=== PATIENT | male | born 1990 | race Hispanic/Latino ===

== ENCOUNTER 2018-09-02 18:05 | Emergency (ER) | payer OTHER ==
--- NOTE | 2018-09-02 21:38 | EDPHYS ---
Physician Documentation [facility] Name: Toy Gloria Age: 27 yrs Sex: Male : 1990 Arrival Date: 09/02/2018 Time: 18:08 Bed 15 Private MD: ED Physician Arthur Vicente HPI: 09/02 21:29 This 27 yrs old Male presents to ER via Ambulatory with complaints of Stepped jmm on Nail. 21:29 The patient presents with an injury, pain. Onset: The symptoms/episode began/occurred jmm acutely, today. This is a 27 year old male with a history of crohns disease, GERD that presents to the ED with complaints of right foot pain. Patient states he stepped on a nail which went through his shoe earlier today. Patient denies other injury. patient is no utd on tetanus immunizations. . Historical: - Allergies: 18:44 KETAMINE; tw2 18:44 special K; tw2 18:44 Phenergan; tw2 - Home Meds: 18:44 Concerta Oral [Active]; unknown acid reflux medicine [Active]; unknown depression tw2 medicine [Active]; - PMHx: 18:44 chron's disease; Depression; GERD; Kidney stones; ulcertive colitis; tw2 - Immunization history:: Adult Immunizations unknown, Last tetanus immunization: unknown. - Social history:: Smoking status: Patient uses tobacco products, chewing tobacco. - Ebola Screening: : Patient denies travel to an Ebola-affected area in the 21 days before illness onset. ROS: 21:29 Constitutional: Negative for fever, chills, and weight loss, Cardiovascular: Negative jmm for chest pain, palpitations, and edema, Respiratory: Negative for shortness of breath, cough, wheezing, and pleuritic chest pain. 21:29 MS/extremity: Positive for injury or acute deformity, pain. 21:29 All other systems are negative. Exam: 21:29 Constitutional: This is a well developed, well nourished patient who is awake, alert, jmm and in no acute distress. Head/Face: atraumatic. Eyes: EOMI, no conjunctival erythema appreciated ENT: Moist Mucus Membranes Neck: Trachea midline, Supple Chest/axilla: Normal chest wall appearance and motion. Cardiovascular: Regular rate and rhythm. No edema appreciated Respiratory: Normal respirations, no respiratory distress appreciated Back: Normal ROM 21:29 Neuro: Awake and alert, normal gait Psych: Behavior is normal, Mood is normal, Patient is cooperative and pleasant 21:29 Musculoskeletal/extremity: puncture wound noted to the ball of the right foot, no surrounding erythema appreciated, no purulent exudate is appreciated. . 21:29 Skin: puncture noted to the ball of the right foot. Vital Signs: 18:43 Pulse 59; Resp 17; Temp 97.8(TE); Pulse Ox 99% on R/A; Pain 3/10; tw2 18:44 BP 104 / 73; tw2 20:45 BP 104 / 83; Pulse 68; Resp 18; Pulse Ox 100% ; aj1 MDM: 21:29 Patient medically screened. [facility] 21:29 Refusal of service: The patient/guardian displays adequate decision making capability [facility] and despite a detailed discussion of alternatives, benefits, risks, and consequences refuses: all X-rays. ED course: Patient is advised of the risk of wound infection and is prescribed oral antibiotics. Patient understood and will follow up with pcp for reevaluation. . 21:36 Data reviewed: vital signs, nurses notes. Counseling: I had a detailed discussion with [facility] the patient and/or guardian regarding: the historical points, exam findings, and any diagnostic results supporting the discharge/admit diagnosis, the need for outpatient follow up, to return to the emergency department if symptoms worsen or persist or if there are any questions or concerns that arise at home. Administered Medications: 22:00 Drug: Tetanus-Diphtheria Toxoid Adult 0.5 ml {Black Top Spreader Machine Operator: [place]. Exp: aj07/23/2020. Lot #: [id number]. } Route: IM; Site: left deltoid; 22:13 Follow up: Response: No adverse reaction aj1 22:00 Drug: Cipro 500 mg Route: PO; aj1 22:14 Follow up: Response: No adverse reaction aj1 Disposition: 09/03 05:19 Co-signature as Attending Physician, Arthur Vicente MD. Disposition: 09/02/18 21:37 Discharged to Home. Impression: Puncture wound without foreign body of foot. - Condition is Stable. - Discharge Instructions: Puncture Wound. - Prescriptions for Cipro 500 mg Oral Tablet - take 1 tablet by ORAL route every 12 hours for 7 days; 20 tablet. - Medication Reconciliation Form, Thank You Letter, Antibiotic Education, Prescription Opioid Use form. - Follow up: Private Physician; When: 2 - 3 days; Reason: Recheck today's complaints, Continuance of care, Re-evaluation by your physician. Signatures: Dispatcher [employer] [facility] Yun Harris, RN RN aj1 Axel Cameron PA PA jmm Wise, Tara, RN RN tw2 Arthur Vicente MD MD gs Corrections: (The following items were deleted from the chart) 09/02 20:49 18:47 Foot Right W Compar+RAD.RAD.BRZ ordered. [facility] 22:21 21:37 09/02/2018 21:37 Discharged to Home. Impression: Puncture wound without foreign aj1 body of foot. Condition is Stable. Forms are Medication Reconciliation Form, Thank You Letter, Antibiotic Education, Prescription Opioid Use. Follow up: Private Physician; When: 2 - 3 days; Reason: Recheck today's complaints, Continuance of care, Re-evaluation by your physician. karla
--- NOTE | 2018-09-02 21:38 | ER ---
Nurse's Notes [facility] Name: Toy Gloria Age: 27 yrs Sex: Male : 1990 Arrival Date: 09/02/2018 Time: 18:08 Bed 15 Private MD: Diagnosis: Puncture wound without foreign body of foot Presentation: 09/02 18:42 Presenting complaint: Patient states: i was wearing tennis shoes and about 3 pm i tw2 stepped on a nail i felt it go all the way through my shoe and into my RIGHT foot. Transition of care: patient was not received from another setting of care. Onset of symptoms was September 02, 2018. Risk Assessment: Do you want to hurt yourself or someone else? Patient reports no desire to harm self or others. Initial Sepsis Screen: Does the patient meet any 2 criteria? No. Patient's initial sepsis screen is negative. Does the patient have a suspected source of infection? No. Patient's initial sepsis screen is negative. Care prior to arrival: None. 18:42 Method Of Arrival: Ambulatory tw2 18:42 Acuity: CHRISTINA 4 tw2 Triage Assessment: 18:45 General: Appears in no apparent distress. Behavior is calm, cooperative, appropriate tw2 for age. Pain: Complains of pain in right foot. Historical: - Allergies: 18:44 KETAMINE; tw2 18:44 special K; tw2 18:44 Phenergan; tw2 - Home Meds: 18:44 Concerta Oral [Active]; unknown acid reflux medicine [Active]; unknown depression tw2 medicine [Active]; - PMHx: 18:44 chron's disease; Depression; GERD; Kidney stones; ulcertive colitis; tw2 - Immunization history:: Adult Immunizations unknown, Last tetanus immunization: unknown. - Social history:: Smoking status: Patient uses tobacco products, chewing tobacco. - Ebola Screening: : Patient denies travel to an Ebola-affected area in the 21 days before illness onset. Screenin:45 Abuse screen: Denies threats or abuse. Denies injuries from another. Nutritional aj1 screening: No deficits noted. Tuberculosis screening: No symptoms or risk factors identified. Fall Risk None identified. Assessment: 20:45 General: Appears in no apparent distress. comfortable, Behavior is calm, cooperative, aj1 appropriate for age. Pain: Complains of pain in right foot. Neuro: Level of Consciousness is awake, alert, obeys commands. Cardiovascular: Patient's skin is warm and dry. Respiratory: Airway is patent Respiratory effort is even, unlabored, Respiratory pattern is regular, symmetrical. GI: No signs and/or symptoms were reported involving the gastrointestinal system. : No signs and/or symptoms were reported regarding the genitourinary system. EENT: No signs and/or symptoms were reported regarding the EENT system. Derm: Skin is pink, warm \T\ dry. normal, Wound noted ball of right foot Wound is puncture wound. Musculoskeletal: Circulation, motion, and sensation intact. 22:20 Reassessment: Patient appears in no apparent distress at this time. No changes from 1 previously documented assessment. Patient and/or family updated on plan of care and expected duration. Pain level reassessed. Patient is alert, oriented x 3, equal unlabored respirations, skin warm/dry/pink. Vital Signs: 18:43 Pulse 59; Resp 17; Temp 97.8(TE); Pulse Ox 99% on R/A; Pain 3/10; tw2 18:44 BP 104 / 73; tw2 20:45 BP 104 / 83; Pulse 68; Resp 18; Pulse Ox 100% ; aj1 ED Course: 18:08 Patient arrived in ED. tw3 18:43 Triage completed. tw2 18:43 Arm band placed on. tw2 20:45 Patient has correct armband on for positive identification. Bed in low position. Call aj1 light in reach. Side rails up X 1. 20:45 No provider procedures requiring assistance completed. [facility] 21:01 Axel Cameron PA is PHCP. [facility] 21:01 Arthur Vicente MD is Attending Physician. [facility] 22:00 Yun Harris RN is Primary Nurse. aj1 22:20 Patient did not have IV access during this emergency room visit. aj1 Administered Medications: 22:00 Drug: Tetanus-Diphtheria Toxoid Adult 0.5 ml {Teletypewriter Operator: [place]. Exp: aj1 07/23/2020. Lot #: [id number]. } Route: IM; Site: left deltoid; 22:13 Follow up: Response: No adverse reaction [facility] 22:00 Drug: Cipro 500 mg Route: PO; aj1 22:14 Follow up: Response: No adverse reaction [facility] Outcome: 21:37 Discharge ordered by MD. acosta 22:20 Discharged to home ambulatory. aj1 22:20 Condition: good 22:20 Discharge instructions given to patient, family, Instructed on discharge instructions, follow up and referral plans. medication usage, wound care, Demonstrated understanding of instructions, follow-up care, medications, Prescriptions given X 2. 22:21 Patient left the ED. aj1 Signatures: Yun Harris RN RN aj1 Axel Cameron PA PA jmm Wise, Tara, RN RN tw2 Maty Hilliard tw3
[2018-09-02] MEDS ORDERED: CIPROFLOXACIN HCL 500 MG TAB ONE (21:59)
[2018-09-02] MEDS ORDERED: TETANUS & DIPHTHERIA TOX,ADULT 0.5 ML VIAL ONE (22:05)
== END 2018-09-02 22:21 | disposition home or self-care (01) ==
LOC: ER 18:05
DX: S91.331A Puncture wound without foreign body, right foot, initial encounter (principal); W45.0XXA Nail entering through skin, initial encounter; Y93.9 Activity, unspecified; Y92.9 Unspecified place or not applicable; Z23 Encounter for immunization; Z72.0 Tobacco use; Z88.8 Allergy status to other drugs, medicaments and biological substances; Z91.018 Allergy to other foods; F32.9 Major depressive disorder, single episode, unspecified
CPT/HCPCS: 90714; 99283

== ENCOUNTER 2019-02-22 17:47 | Emergency (ER) | payer OTHER ==
--- OUTSIDE RECORDS SUMMARY | 2019-02-22 17:49 | XMS REPORT | Summary of Care ---
:1990 Author Organization [facility] Address [address] [place] [address] Care Team Providers Name Role Phone Les Dash Primary Care Provider Reason for Visit Reason Comments Referral/consult Difficulty with urination Encounter Details Date Type Department Care Team Description 01/26/2019 Office Visit [facility] Cancer ChomattiDeisy Dysuria ( Primary Dx); Center-Urologic N, CHILD PSYCHOMETRIST Urinary frequency; Oncology [address] [facility] Post-void dribbling; [address] [facility], [facility] Decreased urine stream; [address] History of nephrolith[place] [id number] [phone] Allergies Active Allergy Reactions Severity Noted Date Comments Dextromethorphan-Guaifenesin Unknown - See comments 01/12/2007 Promethazine Hcl Unknown - See comments 01/12/2007 Midazolam Hcl Unknown - See comments 01/12/2007 documented as of this encounter (statuses as of 01/27/2019) Medications Medication Sig Dispensed Refills Start Date End Date Status PAXIL 30 MG ORAL TAB None Entered 0 Active RISPERDAL 0.5 MG ORAL None Entered 0 Active TAB citalopram 40 mg tablet Take 40 mg by 0 Active mouth daily. Pantoprazole 40 mg Take 40 mg by 0 Active delayed-release mouth daily. suspension Methylphenidate HCl 10 Take by mouth. 0 Active mg Chew documented as of this encounter (statuses as of 01/27/2019) Active Problems Problem Noted Date Routine or child health check 01/12/2007 Overview: 15 YEAR documented as of this encounter (statuses as of 01/27/2019) Immunizations Name Administration Dates Next Due HEPATITIS A 07/15/2007 Meningococcal Vaccine 07/15/2007 documented as of this encounter Social History Tobacco Use Types Packs/Day Years Used Date Former Smoker Smokeless Tobacco: Current User Chew Alcohol Use Drinks/Week oz/Week Comments Never Alcohol Habits Answer Date Recorded How often do you have a drink containing alcohol? Never 01/26/2019 How many drinks containing alcohol do you have on a typical Not asked day when you are drinking? How often do you have six or more drinks on one occasion? Not asked Sex Assigned at Date Recorded Not on file Job Start Date Occupation Industry Not on file Not on file Not on file Travel History Travel Start Travel End No recent travel history available. documented as of this encounter Last Filed Vital Signs Vital Sign Reading Time Taken Comments Blood Pressure 106/69 01/26/2019 10:57 AM CDT Pulse 66 01/26/2019 10:57 AM CDT Temperature 36.8 C (98.2 F) 01/26/2019 10:57 AM CDT Respiratory Rate - - Oxygen Saturation 97% 01/26/2019 10:57 AM CDT Inhaled Oxygen Concentration - - Weight 69 kg (152 lb 3.2 oz) 01/26/2019 10:57 AM CDT Height 160 cm (5' 3") 01/26/2019 10:57 AM CDT Body Mass Index 26.96 01/26/2019 10:57 AM CDT documented in this encounter Patient Instructions Patient InstructionsDeisy Parry FNP - 01/26/2019 11:00 AM CDTAvoid bladder irritants - list provided Increase water intake Prevent constipation Decrease soda intake Limit fluids 2-3 hours prior to bedtime documented in this encounter Progress Notes Deisy Parry FNP - 01/26/2019 11:00 AM CDT Visit Type: Clinic Note / History and Physical Referred by: Self Chief Complaint: Difficulty urinating HPI Toy Gloria is a 28 year old male with a past medical history of below presents for evaluation of difficulty with urination accompanied by girlfriend and mother Swati. Difficulty with urination since the age of 9 which is worsening. No UTIs. No prior catheterization or CIC. No gross hematuria. No fever, chills. Intermittent bilateral flank pain with some nausea for the past few months. Pain described as 3/10 sharp pain intermittent. Pain improved with relaxing. Reports urinary frequency, decreased urine stream, stranguria (which causes rectal prolapse), dysuria attimes. Some incontinence, post-void dribbling. No urge incontinence or ANN-MARIE. Nocturia 12x per night. Incomplete bladder emptying. Urinary frequency every 5 minutes to every 1 hour. Drinks 12 pack of cokes per day. Drinking some water and cranberry juice during the day along with gatorade. No prior injury or trauma. No testicular swelling or pain. History of crohn's and ulcerative colitis diagnosed at age 7 with multiple hospital admissions (no recent exacerbations). History of blood in stool and rectal prolapse. History of many colonoscopies and prior surgery for rectal prolapse. Intermittent constipation, takes colace as needed with improvement. Alternates with loose stool. History of kidney stone at age 13-14 with sent placement. No other stone procedures and has not passed other stones. PCP Dr. mejia in [place]. Family history unknown, adopted. Histories PMH- Crohn's, ulcerative colitis, nephrolithiasis, rectal prolapse PSH- Colonoscopy, ureteral stent, rectal prolapse repair Family history - Unknown - adopted Social - Positive tobacco use, occasional marijuana use and negative for ETOH. Social History Socioeconomic History Marital status: Single Spouse name: Not on file Number of children: Not on file Years of education: Not on file Highest education level: Not on file Occupational History Not on file Social Needs Financial resource strain: Not on file Food insecurity: Worry: Not on file Inability: Not on file Transportation needs: Medical: Not on file Non-medical: Not on file Tobacco Use Smoking status: Former Smoker Smokeless tobacco: Current User Types: Chew Substance and Sexual Activity Alcohol use: Never Frequency: Never Drug use: Not on file Sexual activity: Not on file Lifestyle Physical activity: Days per week: Not on file Minutes per session: Not on file Stress: Not on file Relationships Social connections: Talks on phone: Not on file Gets together: Not on file Attends catholic service: Not on file Active member of club or organization: Not on file Attends meetings of clubs or organizations: Not on file Relationship status: Not on file Intimate partner violence: Fear of current or ex partner: Not on file Emotionally abused: Not on file Physically abused: Not on file Forced sexual activity: Not on file Other Topics Concern Not on file Social History Narrative Not on file Review of Systems Constitutional: Negative for chills, fever and unexpected weight change. HENT: Negative. Eyes: Positive for visual disturbance. Respiratory: Negative for cough, shortness of breath and wheezing. Cardiovascular: Negative for chest pain and palpitations. Gastrointestinal: Positive for abdominal pain, constipation, diarrhea and nausea. Negative for bloodin stool and vomiting. Genitourinary: Positive for bladder incontinence, dysuria, frequency, decreased urine volume and nocturia. Negative for hematuria. Musculoskeletal: Positive for back pain. Skin: Negative for rash. Neurological: Negative. Psychiatric/Behavioral: Depression Endocrine: Endocrine negative Physical Exam Constitutional: He appears well-developed and well-nourished. No distress. HENT: Head: Normocephalic and atraumatic. Eyes: Conjunctivae and EOM are normal. Neck: Neck supple. Cardiovascular: Normal rate. Pulmonary/Chest: Effort normal. Abdominal: Soft. He exhibits no distension. Back: No CVA tenderness Genitourinary: No suprapubic tenderness Musculoskeletal: He exhibits no edema. Neurological: He is alert and oriented to person, place, and time. Skin: Skin is warm and dry. Psychiatric: He has a normal mood and affect. His behavior is normal. Vitals reviewed. BP 106/69 (BP Location: Left arm, Patient Position: Sitting, BP CUFF SIZE: Adult Medium) | Pulse 66 | Temp 36.8 C (98.2 F) (Oral) | Ht 5' 3" (1.6 m) | Wt 152 lb 3.2 oz (69 kg) | SpO2 97% | BMI 26.96 kg/m Laboratory No results found for: PSA No results found for: CREAT No results found for: HGBA1C Radiology No new imaging Procedure Note BS PVR 31 cc Assessment/Plan Toy Gloria is a 28 year old male with: 1. LUTS 2. Urinary frequency / nocturia 3. Decreased urine stream/stranguria 4. History of nephrolithiasis 5. Ulcerative colitis 6. Crohn's 7. GERD 8. Depression Plan 1. UA/Urine C&S 2. Avoid bladder irritants -list provided 3. Increase water intake 4. Prevent constipation 5. Decrease soda intake 6. Limit fluids 2-3 hours prior to bedtime 7. Will notify of results and follow-up accordingly, advised may need CT scan for evaluation due to history of kidney stones. If no improvement in urinary symptoms, may also need to consider cystoscopyby faculty to r/o stricture 8. Requests labs from PCP 9. ER precautions discussed Deisy Parry APRN, FNP-C documented in this encounter Plan of Treatment Name Type Priority Associated Diagnoses Date/Time URINE CULTURE LAB Routine Dysuria 01/26/2019 11:44 AM CDT Urinary frequency Post-void dribbling Decreased urine stream History of nephrolithiasis Health Maintenance Due Date Last Done Comments VARICELLA VACCINES (1 of 2 - 13+ 2002 2-dose series) DTaP,Tdap,and Td Vaccines ( - 2008 Tdap) INFLUENZA VACCINE (#1) 2019 PNEUMOCOCCAL 0-64 YEARS COMBINED Aged Out No longer eligible based on SERIES patient's age to complete this topic documented as of this encounter Procedures Procedure Name Priority Date/Time Associated Diagnosis Comments POCT URINALYSIS Routine 01/26/2019 11:44 Dysuria Results for this AM CDT Urinary frequency procedure are in Post-void dribbling the results Decreased urine stream section. History of nephrolithiasis URINALYSIS Routine 01/26/2019 11:44 Dysuria Results for this AM CDT Urinary frequency procedure are in Post-void dribbling the results Decreased urine stream section. History of nephrolithiasis documented in this encounter Results URINALYSIS (01/26/2019 11:44 AM CDT) APPEARANCE Turbid (A) Clear [facility] COLOR Maricruz (A) Yellow [facility] PH 7.0 4.8 - 8.[address] [facility] SP GRAVITY 1.017 1.003 - 1.[address] [facility] GLU U QUAL Normal Normal [facility] BLOOD Negative Negative [facility] KETONES Negative Negative [facility] PROTEIN Negative Negative [facility] UROBILIN Normal Normal [facility] BILIRUBIN Negative Negative [facility] NITRITE Negative Negative [facility] LEUK MEG Negative Negative [facility] RBC/HPF 3 0 - 3 HPF [facility] WBC/HPF 23 (H) 0 - 5 HPF [facility] BACTERIA Negative Negative [facility] AMORPHOUS Moderate (A) Rare HPF [facility] SQ EPITH 1 <=[address] [facility] Specimen Urine - URINE, CLEAN CATCH Performing Organization Address City/State/Zipcode Phone Number [facility] CLIA: [id number], [address] [place], [place] [address] [facility] POCT URINALYSIS W SPECIFIC GRAVITY (01/26/2019 11:44 AM CDT) POCT U SP GRAV 1.010 1.005 - 1.025 mg/dl POCT PH U 7 5 - 8 mg/dl POCT U [place] EST NEGATIVE Negative - Negative POCT U NIT NEGATIVE Negative - Negative POCT U PROT TRACE Negative - Negative POCT U GLU NEGATIVE Negative - Negative POCT U KETONE NEGATIVE Negative - Negative POCT U UROBILI 0.2 0.2 - 1 mg/dl POCT U BILI NEGATIVE Negative - Negative POCT U BLD TRACE Negative - Negative POCT U COLOR YELLOW POCT U APPEAR CLOUDY Specimen Urine - URINE, CLEAN CATCH documented in this encounter Visit Diagnoses Diagnosis Dysuria - Primary Urinary frequency Post-void dribbling Decreased urine stream Slowing of urinary stream History of nephrolithiasis Personal history of urinary calculi documented in this encounter Insurance Payer Benefit Plan / Subscriber ID Effective Dates Phone Address Type Group [facility] [address] xxxxxxxxx 2018-Present Medicaid COMM PLAN - PLUS MANAGED MEDICAID [phone] [id number] (Work) documented as of this encounter
--- OUTSIDE RECORDS SUMMARY | 2019-02-22 17:49 | XMS REPORT ---
:1990 Author Organization eClinicalWorks Care Team Providers Name Role Phone Alon Patel Provider Role Unavailable Allergies, Adverse Reactions, Alerts Substance Reaction Event Type Phenergan Info Not Available Drug Allergy Ketamine HCl Info Not Available Drug Allergy Problems Problem Type Condition Code Onset Dates Condition Status Assessment Encounter for preventative adult Z00.01 Active health care exam with abnormal findings Problem ADHD (attention deficit F90.9 Active hyperactivity disorder) Problem Crohn's disease of colon with K50.119 Active complication Problem [place] ulcerative (chronic) K51.00 Active colitis Problem Mild mental retardation F70 Active Problem Depression F32.9 Active Problem Mitral valve prolapse I34.1 Active Problem alcohol syndrome Q86.0 Active Problem GERD (gastroesophageal reflux K21.9 Active disease) Assessment Influenza vaccination declined Z28.21 Active Assessment ADHD (attention deficit F90.9 Active hyperactivity disorder) Assessment Depression F32.9 Active Assessment Mild mental retardation F70 Active Assessment GERD (gastroesophageal reflux K21.9 Active disease) Assessment [place] ulcerative (chronic) K51.00 Active colitis Assessment Crohn's disease of colon with K50.119 Active complication Medications Medication Code Code Instructions Start End Status Dosage System Date Date Concerta [facility] 23867107286 54 MG Orally Active 1 tablet Once a day in the morning Citalopram [facility] 24526020853 20 MG Orally Active 1 tablet Hydrobromide Once a day Colace [facility] 89512052816 100 MG Orally Active 1 capsule Once a day as needed Protonix [facility] 94229844686 40 MG Orally Active 1 tablet Once a day Results No Known Results Summary Purpose eClinicalWorks Submission
--- OUTSIDE RECORDS SUMMARY | 2019-02-22 17:49 | XMS REPORT | Summary of Care ---
:1990 Author Organization [facility] Address [address] [place] [address] Care Team Providers Name Role Phone Hardy Les Primary Care Provider Reason for Referral MRI/CAT Scan (Routine) Status Reason Specialty Diagnoses / Referred By Referred To Procedures Contact Contact New Request Diagnostic Diagnoses Pyuria, sterile Lower urinary tract symptoms (LUTS) Decreased urine stream History of nephrolithiasis Microscopic hematuria Sohan, Radiology Procedures CT ABDOMEN PELVIS W WO CONTRAST LOVELY Ramirez [address] [facility] [address] [place] [address] Reason for Visit Reason Comments Results Encounter Details Date Type Department Care Team Description 02/03/2019 Telephone [facility] Cancer Deisy Parry FNP Results Center-Urologic Oncology [address] [place] [address] [address] [facility], [facility] [place] [address] [place] [address] [place] [phone] Allergies Active Allergy Reactions Severity Noted Date Comments Dextromethorphan-Guaifenesin Unknown - See comments 01/12/2007 Promethazine Hcl Unknown - See comments 01/12/2007 Midazolam Hcl Unknown - See comments 01/12/2007 documented as of this encounter (statuses as of 02/03/2019) Medications Medication Sig Dispensed Refills Start Date [...] as of this encounter (statuses as of 02/03/2019) Active Problems Problem Noted Date Routine or child health check 01/12/2007 Overview: 15 YEAR documented as of this encounter (statuses as of 02/03/2019) Immunizations Name Administration Dates Next Due HEPATITIS [...] of this encounter Last Filed Vital Signs Not on filedocumented in this encounter Plan of Treatment Name Type Priority Associated Diagnoses Order Schedule CT ABDOMEN PELVIS W WO IMAGING Routine Pyuria, sterile Expected: 02/03/2019, CONTRAST Lower urinary tract Expires: 02/04/2020 symptoms (LUTS) Decreased urine stream History of nephrolithiasis Microscopic hematuria CREATININE LAB Routine Pyuria, sterile Expected: 02/04/2019, Lower urinary tract Expires: 08/06/2019 symptoms (LUTS) Decreased urine stream History of nephrolithiasis Microscopic hematuria Health Maintenance Due Date Last Done Comments VARICELLA VACCINES (1 of 2 - 13+ 2002 2-dose series) DTaP,Tdap,and Td Vaccines (1 - 2008 Tdap) INFLUENZA VACCINE (#1) 2019 PNEUMOCOCCAL 0-64 YEARS COMBINED Aged Out No longer eligible based on SERIES patient's age to complete this topic documented as of this encounter Results Not on filedocumented in this encounter Visit Diagnoses Diagnosis Pyuria, sterile - Primary Other nonspecific finding on examination of urine Lower urinary tract symptoms (LUTS) Other symptoms involving urinary system Decreased urine stream Slowing of urinary stream History of nephrolithiasis Personal history of urinary calculi Microscopic hematuria documented in this encounter Insurance Payer Benefit Plan / Subscriber ID Effective Dates Phone Address Type Group [facility] xxxxxxxxx 2018-Present Medicaid COMM PLAN - PLUS MANAGED MEDICAID documented as of this encounter
--- OUTSIDE RECORDS SUMMARY | 2019-02-22 17:49 | XMS REPORT | Summary of Care ---
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 PCP Dr. mejia in [place]. Family history unknown, adopted. Histories PMH- Crohn's, [...] file Gets together: Not on file Attends restorationism service: Not on file Active member of [...] 11:44 AM CDT) APPEARANCE Turbid (A) Clear [facility] COLOR Maricruz (A) Yellow [facility] PH 7.0 4.8 - 8.0 [facility] SP GRAVITY 1.017 1.003 - 1.030 [facility] GLU U QUAL Normal Normal [facility] BLOOD Negative Negative [facility]ETONES Negative Negative [facility] PROTEIN Negative Negative [facility] UROBILIN Normal Normal [facility] BILIRUBIN Negative Negative [facility] NITRITE Negative Negative [facility] [place] MEG Negative Negative [facility] RBC/HPF 3 0 - 3 HPF [facility] WBC/HPF 23 (H) 0 - 5 HPF [facility] BACTERIA Negative Negative [facility] AMORPHOUS Moderate (A) Rare HPF [facility] SQ EPITH 1 <=2 HPF [facility] Specimen Urine - URINE, CLEAN CATCH Performing Organization Address City/State/Zipcode Phone Number [facility] CLIA: [id number], [address] [place], [place] [address] [facility] POCT URINALYSIS W SPECIFIC GRAVITY (01/26/2019 11:44 [...] ID Effective Dates Phone Address Type Group [facility] xxxxxxxxx 2018-Present Medicaid COMM PLAN - PLUS MANAGED MEDICAID [phone] [id number] (Work) documented as of this encounter
--- OUTSIDE RECORDS SUMMARY | 2019-02-22 17:49 | XMS REPORT ---
:1990 [facility] Address [address] [place] [address] Dr. Kinsey [address] [place] [address] Care Team Providers Name Role Phone Unavailable Unavailable Unavailable Problems This patient has no known problems. Allergies, Adverse Reactions, Alerts This patient has no known allergies or adverse reactions. Medications This patient has no known medications.
--- OUTSIDE RECORDS SUMMARY | 2019-02-22 17:50 | XMS REPORT | Summary of Care ---
:1990 Author Organization [facility] Address [address] [place] [address] Care Team Providers Name Role Phone Les Dash Primary Care Provider Reason for Referral MRI/CAT Scan (Routine) Status Reason Specialty Diagnoses / Referred By Referred To Procedures Contact Contact Closed Diagnostic Diagnoses Pyuria, sterile Lower urinary tract symptoms (LUTS) Decreased urine stream History of nephrolithiasis Microscopic hematuria Chonoski, Deisy Radiology Procedures CT ABDOMEN PELVIS W WO CONTRAST N, [facility] [address] [facility] [address] [place] [address] MRI/CAT Scan (Routine) Status Reason Specialty Diagnoses / Referred By Referred To Procedures Contact Contact Closed Diagnostic Diagnoses Pyuria, sterile Lower urinary tract symptoms (LUTS) Decreased urine stream History of nephrolithiasis Microscopic hematuria Chonoski, Deisy Radiology Procedures CT ABDOMEN PELVIS W WO CONTRAST N, [facility] [address] [facility] [address] [place] [address] Reason for Visit MRI/CAT Scan (Routine) Status Reason Specialty Diagnoses / Referred By Referred To Procedures Contact Contact Closed Diagnostic Diagnoses Pyuria, sterile Lower urinary tract symptoms (LUTS) Decreased urine stream History of nephrolithiasis Microscopic hematuria Chonoski, Deisy Radiology Procedures CT ABDOMEN PELVIS W WO CONTRAST N, [facility] [address] [facility] [address] [place] [address] Encounter Details Date Type Department Care Team Description 02/16/2019 Hospital Encounter [facility] Deisy Lopez, Arrived [facility] Tomography [address] [facility] [address] [place] [address] [facility] [address] [place] [address] [phone] Allergies Active Allergy Reactions Severity Noted Date Comments Dextromethorphan-Guaifenesin Unknown - See comments 01/12/2007 Promethazine Hcl Unknown - See comments 01/12/2007 Midazolam Hcl Unknown - See comments 01/12/2007 documented as of this encounter (statuses as of 02/17/2019) Medications Medication Sig Dispensed Refills Start Date [...] as of this encounter (statuses as of 02/17/2019) Active Problems Problem Noted Date Routine infant or child health check 01/12/2007 Overview: 15 YEAR documented as of this encounter (statuses as of 02/17/2019) Immunizations Name Administration Dates Next Due HEPATITIS [...] filedocumented in this encounter Plan of Treatment Health Maintenance Due Date Last Done Comments VARICELLA VACCINES (1 of 2 - 13+ 2002 2-dose series) DTaP,Tdap,and Td Vaccines (1 - 2008 Tdap) INFLUENZA VACCINE (#1) 2019 PNEUMOCOCCAL 0-64 YEARS COMBINED Aged Out No longer eligible based on SERIES patient's age to complete this topic documented as of this encounter Procedures Procedure Name Priority Date/Time Associated Comments Diagnosis CT ABDOMEN PELVIS W Routine 02/16/2019 4:56 PM Pyuria, sterile Results for this WO CONTRAST CDT Lower urinary tract procedure are in symptoms (LUTS) the results Decreased urine section. stream History of nephrolithiasis Microscopic hematuria POCT CREATININE Routine 02/16/2019 3:29 PM Results for this CDT procedure are in the results section. NOTICE OF PRIVACY Routine 02/16/2019 3:15 PM PRACTICES CDT CONSENT/REFUSAL FOR Routine 02/16/2019 3:15 PM DIAGNOSIS AND CDT TREATMENT ASSIGNMENT OF Routine 02/16/2019 3:14 PM BENEFITS CDT documented in this encounter Results CT ABDOMEN PELVIS W WO CONTRAST (02/16/2019 4:56 PM CDT) Specimen Narrative Performed At CT Abdomen and Pelvis without and with intravenous contrast. PACS/VR/DOSE CLINICAL HISTORY: LUTS. Pyuria, decreased urine stream, microscopic hematuria. History of nephrolithiasis. DOSE: Up-to-date CT equipment and radiation dose reduction techniques were employed. CTDIvol: 5.40+5.40 mGy. DLP: 270+264 mGy-cm. TECHNIQUE : Contiguous axial imaging from the level of the lung bases through the pubic symphysis were performed after the uncomplicated administration of Omnipaque contrast material. Coronal and sagittal reconstructions were obtained. Auto mA and/or iterative reconstruction were used to reduce radiation dose. FINDINGS: Lower lungs: 2 mm pleural-based nodule in the right posterior lower lung (image #3/series #3). No pleural effusion or pericardial effusion Liver, Gallbladder and Spleen: Liver is 15.7 cm in length and spleen is approximately 9.4 x 4.5 cm. No enhancing lesions visualized in the liver or in the spleen. No calcified gallstones. Biliary ducts and the pancreatic duct appear of normal size. A small 5 mm cystic lesion is seen in the lower right lobe (segment #5). Peritoneum:No free air or free fluid. No lymphadenopathy. Pancreas and Adrenals:Unremarkable pancreas and adrenal glands. Kidneys and Ureters: 2 mm small nonobstructing stone noted in the upper pole of the right kidney. No hydroureter or hydronephrosis. No enhancing kidney lesions. Vessels: Normal. Retroperitoneum: No abnormal fluid or lymphadenopathy. Bowel: No acute findings. Mild constipation noted. Normal small bowel gas pattern. Normal appendix is visualized. Bladder and Reproductive Organs: Normal urinary bladder. No enlargement of the prostate gland. Bones: Bone island noted in the neck of the right femur. No aggressive bone lesions. No compression fracture detected in the lower thoracic or lumbar vertebral bodies. Soft tissues: Unremarkable. CONCLUSION: 1. 2 mm nonobstructing stone in the upper pole of the right kidney. No kidney lesions. No urinary bladder abnormality. 2. 5 mm cyst in the right lobe of the liver. 3. 2 mm pleural-based nodule in the right lower lung, likely of no clinical significance. However, Noncontrast enhanced CT scan of the chest may be obtained to rule out any other nodules in the lungs. Procedure Note [facility], Radiant Results Inft User - 02/16/2019 5:[address] Abdomen and Pelvis without and with intravenous contrast. CLINICAL HISTORY: LUTS. Pyuria, decreased urine stream, microscopic hematuria. History of nephrolithiasis. DOSE: Up-to-date CT equipment and radiation dose reduction techniques were employed. CTDIvol: 5.40+5.40 mGy. DLP: 270+264 mGy-cm. TECHNIQUE : Contiguous axial imaging from the level of the lung bases through the pubic symphysis were performed after the uncomplicated administration of Omnipaque contrast material. Coronal and sagittal reconstructions were obtained. Auto mA and/or iterative reconstruction were used to reduce radiation dose. FINDINGS: Lower lungs: 2 mm pleural-based nodule in the right posterior lower lung (image #3/series #3). No pleural effusion or pericardial effusion Liver, Gallbladder and Spleen: Liver is 15.7 cm in length and spleen is approximately 9.4 x 4.5 cm. No enhancing lesions visualized in the liver or in the spleen. No calcified gallstones. Biliary ducts and the pancreatic duct appear of normal size. A small 5 mm cystic lesion is seen in the lower right lobe (segment #5). Peritoneum: No free air or free fluid. No lymphadenopathy. Pancreas and Adrenals: Unremarkable pancreas and adrenal glands. Kidneys and Ureters: 2 mm small nonobstructing stone noted in the upper pole of the right kidney. No hydroureter or hydronephrosis. No enhancing kidney lesions. Vessels: Normal. Retroperitoneum: No abnormal fluid or lymphadenopathy. Bowel: No acute findings. Mild constipation noted. Normal small bowel gas pattern. Normal appendix is visualized. Bladder and Reproductive Organs: Normal urinary bladder. No enlargement of the prostate gland. Bones: Bone island noted in the neck of the right femur. No aggressive bone lesions. No compression fracture detected in the lower thoracic or lumbar vertebral bodies. Soft tissues: Unremarkable. CONCLUSION: 1. 2 mm nonobstructing stone in the upper pole of the right kidney. No kidney lesions. No urinary bladder abnormality. 2. 5 mm cyst in the right lobe of the liver. 3. 2 mm pleural-based nodule in the right lower lung, likely of no clinical significance. However, Noncontrast enhanced CT scan of the chest may be obtained to rule out any other nodules in the lungs. Performing Organization Address [facility] Phone Number PACS/VR/DOSE POCT CREATININE (02/16/2019 3:29 PM CDT) POCT Creatinine 0.7 0.6 - 1.3 mg/dL [facility] Specimen Blood - VENOUS Performing Organization Address City/[facility]/Zipcode Phone Number [facility] CLIA: [id number], [address] [place] [address] documented in this encounter Visit Diagnoses Diagnosis Pyuria, sterile Other nonspecific finding on examination of urine Lower urinary tract symptoms (LUTS) Other symptoms involving urinary system Decreased urine stream Slowing of urinary stream History of nephrolithiasis Personal history of urinary calculi Microscopic hematuria documented in this encounter Administered Medications Medication Order MAR Action Action Date Dose Rate Site iohexol (OMNIPAQUE 350 BULK-100 Given 02/16/2019 4:42 PM CDT 130 mL mL) injection 130 mL 130 mL, Intravenous, ONCE, 1 dose, 02/16/19 at 1700, Routine documented in this encounter Insurance Payer Benefit Plan / Subscriber ID Effective Dates Phone Address Type Group [facility] ST[facility] xxxxxxxxx 2018-Present Medicaid COMM PLAN - PLUS MANAGED MEDICAID [phone] [id number] (Work) documented as of this encounter
--- NOTE | 2019-02-22 19:43 | ER ---
Nurse's Notes [facility] Name: Toy Gloria Age: 28 yrs Sex: Male : 1990 Arrival Date: 02/22/2019 Time: 17:49 Bed 11 [facility] MD: Diagnosis: Urticaria, unspecified Presentation: 02/22 17:58 Presenting complaint: Patient states: rash that started this morning. Benadryl taken sv today. Transition of care: patient was not received from another setting of care. Onset of symptoms was February 22, 2019. Risk Assessment: Do you want to hurt yourself or someone else? Patient reports no desire to harm self or others. Care prior to arrival: None. 17:58 Method Of Arrival: Ambulatory sv 17:58 Acuity: CHRISTINA 4 sv 19:14 Initial Sepsis Screen: Does the patient meet any 2 criteria? No. Patient's initial jd3 sepsis screen is negative. Does the patient have a suspected source of infection? No. Patient's initial sepsis screen is negative. Triage Assessment: 17:58 General: Appears in no apparent distress. comfortable, Behavior is calm, cooperative, sv appropriate for age. Pain: Denies pain. Neuro: Level of Consciousness is awake, alert, obeys commands, Gait is steady. Respiratory: Respiratory effort is even, unlabored, Respiratory pattern is regular, symmetrical. Derm: Rash noted that is red, urticaria, on back, chest, right arm and left arm. Historical: - Allergies: 17:59 KETAMINE; sv 17:59 Phenergan; sv 17:59 special K; sv 17:59 Versed; sv - PMHx: 17:59 chron's disease; Depression; GERD; Kidney stones; ulcertive colitis; sv - Immunization history:: Adult Immunizations up to date. - Social history:: Smoking status: Patient uses tobacco products, denies chronic smoking, but will smoke occasionally. - Ebola Screening: : Patient negative for fever greater than or equal to 101.5 degrees Fahrenheit, and additional compatible Ebola Virus Disease symptoms. Screenin:14 Abuse screen: Denies threats or abuse. Nutritional screening: No deficits noted. jd3 Tuberculosis screening: No symptoms or risk factors identified. Fall Risk Ambulatory Aid- None/Bed Rest/Nurse Assist (0 pts). Gait- Normal/Bed Rest/Wheelchair (0 pts) Mental Status- Oriented to own ability (0 pts). Total Randolph Fall Scale indicates No Risk (0-24 pts). Assessment: 19:12 General: Appears in no apparent distress. uncomfortable, Behavior is calm, cooperative, jd3 appropriate for age. Pain: Complains of pain in chest and back Quality of pain is described as itching. Neuro: Level of Consciousness is awake, alert, obeys commands, Oriented to person, place, time, situation. Cardiovascular: Capillary refill < 3 seconds Patient's skin is warm and dry. Respiratory: Airway is patent Respiratory effort is even, unlabored, Respiratory pattern is regular, symmetrical, Breath sounds are clear bilaterally. Denies cough, shortness of breath at rest. GI: No signs and/or symptoms were reported involving the gastrointestinal system. : No signs and/or symptoms were reported regarding the genitourinary system. EENT: No signs and/or symptoms were reported regarding the EENT system. Derm: Skin is intact, Skin is dry, Skin is normal, Skin temperature is warm Rash noted that is itchy, red, on back and chest. Musculoskeletal: Circulation, motion, and sensation intact. Range of motion: intact in all extremities. 20:00 Reassessment: Patient appears in no apparent distress at this time. Patient and/or jd3 family updated on plan of care and expected duration. Pain level reassessed. Patient is alert, oriented x 3, equal unlabored respirations, skin warm/dry/pink. reported understanding of discharge instructions. Patient denies pain at this time. Vital Signs: 18:04 BP 118 / 81; Pulse 85; Resp 18; Temp 98.9(TE); Pulse Ox 98% ; Weight 6.35 kg; Height 5 sv ft. 3 in. (160.02 cm); 18:04 Body Mass Index 2.48 (6.35 kg, 160.02 cm) sv ED Course: 17:49 Patient arrived in ED. as 17:59 Triage completed. sv 18:00 Arm band placed on. sv 19:12 Chaz Wheeler, RN is Primary Nurse. jd3 19:14 Patient has correct armband on for positive identification. Bed in low position. Call jd3 light in reach. Side rails up X 1. 19:17 Jaden Segura MD is Attending Physician. tw4 19:59 No provider procedures requiring assistance completed. Patient did not have IV access jd3 during this emergency room visit. Administered Medications: 19:40 CANCELLED (Physician Discretion): Motrin 800 mg PO once tw4 19:53 Drug: Pepcid 20 mg Route: PO; jd3 20:03 Follow up: Response: Medication administered at discharge. jd3 19:53 Drug: predniSONE 60 mg Route: PO; jd3 20:03 Follow up: Response: Medication administered at discharge. jd3 19:54 Drug: Benadryl 25 mg Route: PO; jd3 20:03 Follow up: Response: Medication administered at discharge. jd3 Outcome: 19:42 Discharge ordered by . tw4 19:59 Discharged to home ambulatory, with family. jd3 19:59 Condition: stable 19:59 Discharge instructions given to patient, Instructed on discharge instructions, follow up and referral plans. medication usage, Demonstrated understanding of instructions, follow-up care, medications, Prescriptions given X 1. 20:00 Patient left the ED. jd3 Signatures: Renuka Del Castillo RN RN sv Martinez, Amelia as Davies, Jonathon, RN RN jd3 Wadley, Terrence, MD MD tw4 Corrections: (The following items were deleted from the chart) 19:14 19:14 Social history: Smoking status: unknown jgeraldine jd3
--- NOTE | 2019-02-22 19:43 | EDPHYS ---
Physician Documentation [facility] Name: Toy Gloria Age: 28 yrs Sex: Male : 1990 Arrival Date: 02/22/2019 Time: 17:49 Bed 11 Private MD: ED Physician Jaden Segura HPI: 02/22 19:55 This 28 yrs old Male presents to ER via Ambulatory with complaints of Rash. tw4 19:55 The patient's rash thought to be caused by an unknown cause. The rash is located on the tw4 anterior aspect of right upper chest, anterior aspect of left upper chest, mid-sternal area, right breast, left breast and abdomen. The rash can be described as papular. Onset: The symptoms/episode began/occurred this morning. Associated signs and symptoms: Pertinent positives: itching, Pertinent negatives: burning sensation, difficulty breathing, fever, nausea, swelling of lips, swelling of throat, swelling of tongue, vomiting. Severity of symptoms: At their worst the symptoms were moderate in the emergency department the symptoms are unchanged. The patient has not experienced similar symptoms in the past. Historical: - Allergies: 17:59 KETAMINE; sv 17:59 Phenergan; sv 17:59 special K; sv 17:59 Versed; sv - PMHx: 17:59 chron's disease; Depression; GERD; Kidney stones; ulcertive colitis; sv - Immunization history:: Adult Immunizations up to date. - Social history:: Smoking status: Patient uses tobacco products, denies chronic smoking, but will smoke occasionally. - Ebola Screening: : Patient negative for fever greater than or equal to 101.5 degrees Fahrenheit, and additional compatible Ebola Virus Disease symptoms. ROS: 19:55 Constitutional: Negative for fever, chills, and weight loss, Eyes: Negative for injury, tw4 pain, redness, and discharge, Cardiovascular: Negative for chest pain, palpitations, and edema, Respiratory: Negative for shortness of breath, cough, wheezing, and pleuritic chest pain, Abdomen/GI: Negative for abdominal pain, nausea, vomiting, diarrhea, and constipation, Back: Negative for injury and pain, MS/Extremity: Negative for injury and deformity. 19:55 Skin: Positive for rash. Exam: 19:55 Constitutional: This is a well developed, well nourished patient who is awake, alert, tw4 and in no acute distress. Head/Face: Normocephalic, atraumatic. ENT: Nares patent. No nasal discharge, no septal abnormalities noted. Tympanic membranes are normal and external auditory canals are clear. Oropharynx with no redness, swelling, or masses, exudates, or evidence of obstruction, uvula midline. Mucous membranes moist. Chest/axilla: Normal chest wall appearance and motion. Nontender with no deformity. No lesions are appreciated. Cardiovascular: Regular rate and rhythm with a normal S1 and S2. No gallops, murmurs, or rubs. Normal PMI, no JVD. No pulse deficits. Respiratory: Lungs have equal breath sounds bilaterally, clear to auscultation and percussion. No rales, rhonchi or wheezes noted. No increased work of breathing, no retractions or nasal flaring. 19:55 Skin: Appearance: normal except for affected area, rash a moderate rash is noted, urticaria. Vital Signs: 18:04 BP 118 / 81; Pulse 85; Resp 18; Temp 98.9(TE); Pulse Ox 98% ; Weight 6.35 kg; Height 5 sv ft. 3 in. (160.02 cm); 18:04 Body Mass Index 2.48 (6.35 kg, 160.02 cm) sv MDM: 19:17 Patient medically screened. tw4 19:55 Differential diagnosis: allergic reaction, parasite infection. Data reviewed: vital tw4 signs, nurses notes. Test interpretation: by ED physician or midlevel provider: plain radiologic studies. Counseling: I had a detailed discussion with the patient and/or guardian regarding: the historical points, exam findings, and any diagnostic results supporting the discharge/admit diagnosis. Medication response: Benadryl pepcid. Response to treatment: the patient's symptoms have mildly improved after treatment, and as a result, I will discharge patient. Special discussion: Based on the patient's history, exam and DX evaluation, there is no indication for emergent intervention or inpatient [place]. It is understood by the patient/guardian that if the SXs persist or worsen they need to return immediately for re-evaluation. Administered Medications: 19:40 CANCELLED (Physician Discretion): Motrin 800 mg PO once tw4 19:53 Drug: Pepcid 20 mg Route: PO; jd3 20:03 Follow up: Response: Medication administered at discharge. jd3 19:53 Drug: predniSONE 60 mg Route: PO; jd3 20:03 Follow up: Response: Medication administered at discharge. jd3 19:54 Drug: Benadryl 25 mg Route: PO; jd3 20:03 Follow up: Response: Medication administered at discharge. jd3 Disposition: 02/22/19 19:42 Discharged to Home. Impression: Urticaria, unspecified. - Condition is Stable. - Discharge Instructions: Allergies, Adult, Hives. - Prescriptions for Medrol (Gio) 4 mg Oral Tablets, Dose Pack - take 1 tablet by ORAL route as directed - follow package instructions; 1 packet. - Medication Reconciliation Form, Thank You Letter, Antibiotic Education, Prescription Opioid Use form. - Follow up: Private Physician; When: Upon discharge from the Emergency Department; Reason: If symptoms return, Recheck today's complaints, Continuance of care. - Problem is new. - Symptoms are unchanged. Signatures: Renuka Del Castillo RN RN sv Davies, Jonathon, RN RN [facility] Jaden Segura MD MD tw4 Corrections: (The following items were deleted from the chart) 19:14 19:14 Social history: Smoking status: unknown jd3 jd3 19:40 19:33 Motrin 800 mg PO once ordered. tw4 tw4 20:00 19:42 02/22/2019 19:42 Discharged to Home. Impression: Urticaria, unspecified. jd3 Condition is Stable. Forms are Medication Reconciliation Form, Thank You Letter, Antibiotic Education, Prescription Opioid Use. Follow up: Private Physician; When: Upon discharge from the Emergency Department; Reason: If symptoms return, Recheck today's complaints, Continuance of care. Problem is new. Symptoms are unchanged. tw4
[2019-02-22] MEDS ORDERED: predniSONE 20 MG TAB ONE (19:47)
[2019-02-22] MEDS ORDERED: DIPHENHYDRAMINE 25 MG TAB/CAP ONE (19:47)
[2019-02-22] MEDS ORDERED: FAMOTIDINE 20 MG TAB ONE (19:48)
== END 2019-02-22 20:00 | disposition home or self-care (01) ==
LOC: ER 17:47
DX: L50.9 Urticaria, unspecified (principal); Z72.0 Tobacco use; Z88.8 Allergy status to other drugs, medicaments and biological substances; Z91.018 Allergy to other foods
CPT/HCPCS: 99283; J7512

== ENCOUNTER 2019-04-29 21:46 | Emergency (ER) | payer OTHER ==
--- OUTSIDE RECORDS SUMMARY | 2019-04-29 21:48 | XMS REPORT ---
:1990 [facility] Address [address] [place] [address] Dr. Kinsey [address] [place] [address] Care Team Providers Name Role Phone Unavailable Unavailable Unavailable Problems This patient has no known problems. Allergies, Adverse Reactions, Alerts This patient has no known allergies or adverse reactions. Medications This patient has no known medications.
--- OUTSIDE RECORDS SUMMARY | 2019-04-29 21:48 | XMS REPORT ---
[...] of colon with K50.119 Active complication Problem Ensign ulcerative (chronic) K51.00 Active colitis Problem Mild [...] GERD (gastroesophageal reflux K21.9 Active disease) Assessment Ensign ulcerative (chronic) K51.00 Active colitis Assessment Crohn's disease of colon with K50.119 Active complication Medications Medication Code Code Instructions Start End Status Dosage System Date Date Concerta [facility] 72168681385 54 MG Orally Active 1 tablet Once a day in the morning Citalopram [facility] 11248412262 20 MG Orally Active 1 tablet Hydrobromide Once a day Colace [facility] 69994197125 100 MG Orally Active 1 capsule Once a day as needed Protonix [facility] 24041232582 40 MG Orally Active 1 tablet Once a day Results No Known Results Summary Purpose eClinicalWorks Submission
--- OUTSIDE RECORDS SUMMARY | 2019-04-29 21:49 | XMS REPORT | Summary of Care ---
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 Urinary frequency; Oncology [address] [facility] Post-void dribbling; [address] [facility], [facility] Decreased urine stream; [address] [place] [address] [phone] Allergies Active Allergy Reactions Severity Noted Date Comments Dextromethorphan-Guaifenesin Unknown - See comments 01/12/2007 Promethazine Hcl Unknown - See comments 01/12/2007 Midazolam Hcl Unknown - See comments 01/12/2007 documented as of this encounter (statuses as of 02/23/2019) Medications Medication Sig Dispensed Refills Start Date [...] as of this encounter (statuses as of 02/23/2019) Active Problems Problem Noted Date Routine infant or child health check 01/12/2007 Overview: 15 YEAR documented as of this encounter (statuses as of 02/23/2019) Immunizations Name Administration Dates Next Due HEPATITIS [...] of kidney stone at age 13-14 with stent placement. No other stone procedures and has not passed other stones. PCP Dr. mejia in [place]. Family history unknown, adopted. Histories PMH- Crohn's, [...] file Gets together: Not on file Attends shinto service: Not on file Active member of [...] documented in this encounter Plan of Treatment Health Maintenance Due Date Last Done Comments VARICELLA VACCINES (1 of - + 2002 2-dose series) DTaP,Tdap,and Td Vaccines ( [...] Decreased urine stream section. History of nephrolithiasis URINE CULTURE Routine 01/26/2019 11:44 Dysuria Results for this AM CDT Urinary frequency procedure are in Post-void dribbling the results Decreased urine stream section. History of nephrolithiasis URINALYSIS Routine 01/26/2019 11:44 Dysuria Results for this AM CDT Urinary frequency procedure are in Post-void dribbling the results Decreased urine stream section. History of nephrolithiasis documented in this encounter Results URINE CULTURE (01/26/2019 11:44 AM CDT) URINE CULTURE <10,000 CFU/mL [facility] Gram-Positive SERVICES Cocci Specimen Urine - URINE, CLEAN CATCH Performing Organization Address City/State/Zipcode Phone Number [facility] CLIA: [id number], [address] [place] [address] [phone] [facility] URINALYSIS (01/26/2019 11:44 AM CDT) APPEARANCE Turbid (A) Clear [facility] COLOR Maricruz (A) Yellow [facility] PH 7.0 4.8 - 8.0 [facility] SP GRAVITY 1.017 1.003 - 1.030 [facility] GLU U QUAL Normal Normal [facility] BLOOD Negative Negative [facility] KETONES Negative Negative [facility] PROTEIN Negative Negative [facility] UROBILIN Normal Normal [facility] BILIRUBIN Negative Negative [facility] NITRITE Negative Negative [facility] LEUK MEG Negative Negative [facility] RBC/HPF 3 0 - 3 HPF [facility] WBC/HPF 23 (H) 0 - 5 HPF [facility] BACTERIA Negative Negative [facility] AMORPHOUS Moderate (A) Rare HPF [facility] SQ EPITH 1 <=2 HPF [facility] Specimen Urine - URINE, CLEAN CATCH Performing Organization Address City/State/[facility] Phone Number [facility] CLIA: [id number], [address] [place] [address] [facility] POCT URINALYSIS W SPECIFIC GRAVITY (01/26/2019 11:44 [...] ID Effective Dates Phone Address Type Group [facility] xxxxxxxxx 2018-Present Medicaid COMM PLAN - PLUS MANAGED MEDICAID [phone] [id number] (Work) documented as of this encounter
[2019-04-29] MEDS ORDERED: NA CHLORIDE 0.9% 1,000 ML ONE (23:31)
[2019-04-29] MEDS ORDERED: ONDANSETRON 4 MG/2 ML VIAL ONE (23:31)
[2019-04-29 23:46] LABS: Absolute Lymphocytes (CBC) 2.1 K/uL (0.7-4.9); Basophils % 0.4 % (0-1.3); Hematocrit 44.4 % (39.6-49.0); Lymphocytes % 19.2 % (15.3-44.8); MPV 8.4 fL (7.6-11.3); RBC Red Blood Cell Count 5.16 M/uL (4.33-5.43)
[2019-04-30 00:05] LABS: ALT/SGPT 39 U/L (12-78); AST/SGOT 23 U/L (15-37); Albumin 4.3 g/dL (3.4-5.0); Alkaline Phosphatase 78 U/L (45-117); BUN Blood Urea Nitrogen 14 mg/dL (7-18); Bicarbonate 28 mmol/L (21-32); Bilirubin Direct 0.2 mg/dL (0-0.2); Bilirubin Total 0.5 mg/dL (0.2-1.0); Glucose Level 82 mg/dL (74-106); Lipase 242 U/L (73-393); Potassium 3.7 mmol/L (3.5-5.1); Sodium Level 139 mmol/L (136-145)
[2019-04-30] MEDS ORDERED: METRONIDAZOLE 500mg IVPB 500 MG/100 ML BAG IV ONE (00:07)
[2019-04-30] MEDS ORDERED: Ciprofloxacin 200mg IV 200 MG/100 ML IV.SOLN. IV ONE (00:07)
--- NOTE | 2019-04-30 01:28 | ER ---
Nurse's Notes [facility] Name: Toy Gloria Age: 28 yrs Sex: Male : 1990 Arrival Date: 04/29/2019 Time: 21:50 Bed 26 Private MD: Diagnosis: Abdominal tenderness;Gastrointestinal hemorrhage, unspecified-stable Presentation: 04/29 21:59 Presenting complaint: Patient states: Patient states he became "queasy" , had formed BM ae4 with blood in the toilet. Pt reports hx of Crohn's, blood transfusion, rectal prolapse and kidney stones. Transition of care: patient was not received from another setting of care. Onset of symptoms was April 29, 2019 at 22:02. Risk Assessment: Do you want to hurt yourself or someone else? Patient reports no desire to harm self or others. 21:59 Method Of Arrival: Ambulatory ae4 21:59 Acuity: CHRISTINA 3 ae4 23:42 Initial Sepsis Screen: Does the patient meet any 2 criteria? No. Patient's initial mg2 sepsis screen is negative. Does the patient have a suspected source of infection? No. Patient's initial sepsis screen is negative. 23:43 Care prior to arrival: None. mg2 Triage Assessment: 22:03 General: Appears in no apparent distress. comfortable, Behavior is calm, cooperative. ae4 Pain: Denies pain. Neuro: Level of Consciousness is awake, alert, obeys commands, Oriented to person, place, situation. Respiratory: Airway is patent Respiratory effort is even, unlabored, Respiratory pattern is regular, symmetrical. GI: Reports bloody stool, nausea. : Reports burning with urination. Historical: - Allergies: 22:03 KETAMINE; ae4 22:03 Phenergan; ae4 22:03 special K; ae4 22:03 Versed; ae4 - Home Meds: 22:03 unknown acid reflux medicine [Active]; unknown depression medicine [Active]; ae4 23:43 Concerta Oral [Active]; mg2 - PMHx: 22:03 chron's disease; Depression; GERD; Kidney stones; ulcertive colitis; ae4 - Immunization history:: Adult Immunizations up to date. - Social history:: Smoking status: Patient uses street drugs, marijuana. - Ebola Screening: : Patient denies travel to an Ebola-affected area in the 21 days before illness onset No symptoms or risks identified at this time. Screenin:39 Abuse screen: Denies threats or abuse. Denies injuries from another. Nutritional mg2 screening: No deficits noted. Tuberculosis screening: No symptoms or risk factors identified. Fall Risk IV access (20 points). Assessment: 23:40 General: Appears in no apparent distress. comfortable, Behavior is calm, cooperative. mg2 Pain: Denies pain. Neuro: Level of Consciousness is awake, alert, obeys commands, Oriented to person, place, time, situation. Cardiovascular: Capillary refill < 3 seconds Patient's skin is warm and dry. Respiratory: Airway is patent Respiratory effort is even, unlabored, Respiratory pattern is regular, symmetrical. GI: Reports rectal bleeding, nausea, vomiting. : No signs and/or symptoms were reported regarding the genitourinary system. EENT: No signs and/or symptoms were reported regarding the EENT system. Derm: Skin is intact, is healthy with good turgor, Skin is pink, warm \\T\\ dry. normal. Musculoskeletal: Circulation, motion, and sensation intact. Capillary refill < 3 seconds. 04/30 00:21 Reassessment: patient sent to ct scan via wheelchair. mg2 00:50 Reassessment: Patient appears in no apparent distress at this time. No changes from aj1 previously documented assessment. Patient and/or family updated on plan of care and expected duration. Pain level reassessed. Patient is alert, oriented x 3, equal unlabored respirations, skin warm/dry/pink. 01:51 Reassessment: Patient appears in no apparent distress at this time. No changes from aj1 previously documented assessment. Patient and/or family updated on plan of care and expected duration. Pain level reassessed. Patient is alert, oriented x 3, equal unlabored respirations, skin warm/dry/pink. Vital Signs: 04/29 22:03 BP 114 / 77; Pulse 81; Resp 18; Temp 97.8(O); Pulse Ox 100% on R/A; Weight 65.77 kg (R);ae4 23:40 BP 108 / 70; Pulse 81; Resp 18; Pulse Ox 100% on R/A; mg2 04/30 00:50 BP 112 / 62; Pulse 78; Resp 18; Pulse Ox 99% on R/A; aj1 01:53 BP 110 / 72; Pulse 85; Resp 18; Pulse Ox 99% on R/A; aj1 ED Course: 04/29 21:50 Patient arrived in ED. cl3 22:02 Triage completed. ae4 22:06 Arm band placed on right wrist. ae4 23:01 Tyron Cochran MD is Attending Physician. gauri 23:38 Francesco Landry, RN is Primary Nurse. mg2 23:40 No provider procedures requiring assistance completed. Inserted saline lock: 20 gauge mg2 in right forearm, using aseptic technique. Blood collected. 23:42 Patient has correct armband on for positive identification. mg2 04/30 00:43 CT Abd/Pelvis - IV Contrast Only In Process Unspecified. EDMS 01:26 Atul Pedraza MD is Referral Physician. gauri 02:35 IV discontinued, intact, bleeding controlled, No redness/swelling at site. Pressure aj1 dressing applied. Administered Medications: 04/29 23:37 Not Given (Patient Refused): morphine 2 mg IVP once; (PAIN>8) RASS on ADMN: Combtv4, mg2 Very Agttd3, Agttd2, Rstlss1, AlertClm0, Drwsy-1, LtSdtn-2, ModSdtn-3, DpSdtn-4, UnArsble-5 x2 23:38 Drug: NS 0.9% 1000 ml Route: IV; Rate: 1 bolus; Site: right forearm; mg2 23:38 Drug: Zofran 4 mg Route: IVP; Site: right forearm; mg2 04/30 00:10 Follow up: Response: No adverse reaction mg2 00:20 Drug: Flagyl 500 mg Volume: 100 ml; Route: IVPB; Rate: 200 ml/hr; Infused Over: 30 mg2 mins; Site: right forearm; 01:24 Follow up: IV Status: Completed infusion; IV Intake: 100ml aj1 01:24 Drug: Cipro 400 mg Volume: 200 ml; Route: IVPB; Infused Over: 60 mins; Site: right aj1 wrist; 02:34 Follow up: IV Status: Completed infusion; IV Intake: 200ml aj1 Intake: 01:24 IV: 100ml; Total: 100ml. aj1 02:34 IV: 200ml; Total: 300ml. aj1 Outcome: 01:27 Discharge ordered by . gauri 02:35 Discharged to home ambulatory, with family. aj1 02:35 Condition: good 02:35 Discharge instructions given to patient, family, Instructed on discharge instructions, follow up and referral plans. medication usage, Demonstrated understanding of instructions, follow-up care, medications, Prescriptions given X 4. 02:36 Patient left the ED. aj1 Signatures: Dispatcher [employer] EDYun Constantino RN RN aj1 Tyron Cochran MD MD cha Gardose, Michele, RN RN mg2 Jens Hebert RN RN ae4 Ko Knight 3
--- NOTE | 2019-04-30 01:29 | EDPHYS ---
Physician Documentation [facility] Name: Toy Gloria Age: 28 yrs Sex: Male : 1990 Arrival Date: 04/29/2019 Time: 21:50 Bed 26 Private MD: ED Physician Tyron Cochran HPI: 04/29 23:33 This 28 yrs old Male presents to ER via Ambulatory with complaints of Rectal gauri Bleeding. 23:33 The patient presents to the emergency department with bleeding from the rectum/anus, gauri that is mild. Onset: The symptoms/episode began/occurred today. Context: the patient has no known special context relating to the rectal area complaint(s). Modifying factors: The symptoms are alleviated by nothing, The symptoms are aggravated by nothing. Associate signs and symptoms: The patient has no apparent associated signs or symptoms. The patient has not experienced similar symptoms in the past. Historical: - Allergies: 22:03 KETAMINE; ae4 22:03 Phenergan; ae4 22:03 special K; ae4 22:03 Versed; ae4 - Home Meds: 22:03 unknown acid reflux medicine [Active]; unknown depression medicine [Active]; ae4 23:43 Concerta Oral [Active]; mg2 - PMHx: 22:03 chron's disease; Depression; GERD; Kidney stones; ulcertive colitis; ae4 - Immunization history:: Adult Immunizations up to date. - Social history:: Smoking status: Patient uses street drugs, marijuana. - Ebola Screening: : Patient denies travel to an Ebola-affected area in the 21 days before illness onset No symptoms or risks identified at this time. ROS: 23:33 Constitutional: Negative for fever, chills, and weight loss, Eyes: Negative for injury, gauri pain, redness, and discharge, ENT: Negative for injury, pain, and discharge, Neck: Negative for injury, pain, and swelling, Cardiovascular: Negative for chest pain, palpitations, and edema, Respiratory: Negative for shortness of breath, cough, wheezing, and pleuritic chest pain, Back: Negative for injury and pain, : Negative for injury, bleeding, discharge, and swelling, MS/Extremity: Negative for injury and deformity, Skin: Negative for injury, rash, and discoloration, Neuro: Negative for headache, weakness, numbness, tingling, and seizure, Psych: Negative for depression, anxiety, suicide ideation, homicidal ideation, and hallucinations, Allergy/Immunology: Negative for hives, rash, and allergies, Endocrine: Negative for neck swelling, polydipsia, polyuria, polyphagia, and marked weight changes, Hematologic/Lymphatic: Negative for swollen nodes, abnormal bleeding, and unusual bruising. 23:33 Abdomen/GI: Positive for abdominal pain, abdominal cramps, rectal bleeding. Exam: 23:33 Constitutional: This is a well developed, well nourished patient who is awake, alert, gauri and in no acute distress. Head/Face: Normocephalic, atraumatic. Eyes: Pupils equal round and reactive to light, extra-ocular motions intact. Lids and lashes normal. Conjunctiva and sclera are non-icteric and not injected. Cornea within normal limits. Periorbital areas with no swelling, redness, or edema. ENT: Nares patent. No nasal discharge, no septal abnormalities noted. Tympanic membranes are normal and external auditory canals are clear. Oropharynx with no redness, swelling, or masses, exudates, or evidence of obstruction, uvula midline. Mucous membranes moist. Neck: Trachea midline, no thyromegaly or masses palpated, and no cervical lymphadenopathy. Supple, full range of motion without nuchal rigidity, or vertebral point tenderness. No Meningismus. Chest/axilla: Normal chest wall appearance and motion. Nontender with no deformity. No lesions are appreciated. Cardiovascular: Regular rate and rhythm with a normal S1 and S2. No gallops, murmurs, or rubs. Normal PMI, no JVD. No pulse deficits. Respiratory: Lungs have equal breath sounds bilaterally, clear to auscultation and percussion. No rales, rhonchi or wheezes noted. No increased work of breathing, no retractions or nasal flaring. Back: No spinal tenderness. No costovertebral tenderness. Full range of motion. Skin: Warm, dry with normal turgor. Normal color with no rashes, no lesions, and no evidence of cellulitis. MS/ Extremity: Pulses equal, no cyanosis. Neurovascular intact. Full, normal range of motion. Neuro: Awake and alert, GCS 15, oriented to person, place, time, and situation. Cranial nerves II-XII grossly intact. Motor strength 5/5 in all extremities. Sensory grossly intact. Cerebellar exam normal. Normal gait. Psych: Awake, alert, with orientation to person, place and time. Behavior, mood, and affect are within normal limits. 23:33 Abdomen/GI: Inspection: abdomen appears normal, Bowel sounds: normal, Palpation: mild abdominal tenderness, in the umbilical area, Liver: no appreciated palpable abnormalities, Hernia: not appreciated. Vital Signs: 22:03 BP 114 / 77; Pulse 81; Resp 18; Temp 97.8(O); Pulse Ox 100% on R/A; Weight 65.77 kg (R);ae4 23:40 BP 108 / 70; Pulse 81; Resp 18; Pulse Ox 100% on R/A; mg2 04/30 00:50 BP 112 / 62; Pulse 78; Resp 18; Pulse Ox 99% on R/A; aj1 01:53 BP 110 / 72; Pulse 85; Resp 18; Pulse Ox 99% on R/A; aj1 MDM: 04/29 23:[address] [facility] 23:35 Data reviewed: vital signs, nurses notes, lab test result(s), EKG, radiologic studies, [facility] CT scan. 04/29 23:18 Order name: Basic Metabolic Panel; Complete Time: 00:35 [facility] 04/29 23:18 Order name: CBC with Diff; Complete Time: 00:35 [facility] 04/29 23:18 Order name: Creatinine for Radiology; Complete Time: 00:35 [facility] 04/29 23:18 Order name: Hepatic Function; Complete Time: 00:35 [facility] 04/29 23:18 Order name: Lipase; Complete Time: 00:35 [facility] 04/29 23:18 Order name: Type And Screen; Complete Time: 01:26 [facility] 04/29 23:18 Order name: IV Saline Lock; Complete Time: 23:39 [facility] 04/29 23:18 Order name: Labs collected and sent; Complete Time: 23:39 [facility] 04/29 23:18 Order name: CT Abd/Pelvis - IV Contrast Only [facility] Administered Medications: 23:37 Not Given (Patient Refused): morphine 2 mg IVP once; (PAIN>8) RASS on ADMN: Combtv4, mg2 Very Agttd3, Agttd2, Rstlss1, AlertClm0, Drwsy-1, LtSdtn-2, ModSdtn-3, DpSdtn-4, UnArsble-5 x2 23:38 Drug: NS 0.9% 1000 ml Route: IV; Rate: 1 bolus; Site: right forearm; mg2 23:38 Drug: Zofran 4 mg Route: IVP; Site: right forearm; mg2 04/30 00:10 Follow up: Response: No adverse reaction mg2 00:20 Drug: Flagyl 500 mg Volume: 100 ml; Route: IVPB; Rate: 200 ml/hr; Infused Over: 30 mg2 mins; Site: right forearm; 01:24 Follow up: IV Status: Completed infusion; IV Intake: 100ml aj 01:24 Drug: Cipro 400 mg Volume: 200 ml; Route: IVPB; Infused Over: 60 mins; Site: right aj1 wrist; 02:34 Follow up: IV Status: Completed infusion; IV Intake: 200ml aj1 Disposition: 04/30/19 01:27 Discharged to Home. Impression: Abdominal tenderness, Gastrointestinal hemorrhage, unspecified - stable. - Condition is Stable. - Discharge Instructions: Abdominal Pain, Adult, Crohn Disease, Gastrointestinal Bleeding, Rectal Bleeding, Abdominal Pain, Adult, [id number]. - Prescriptions for Bentyl 20 mg Oral Tablet - take 1 tablet by ORAL route every 6 hours As needed; 20 tablet. Flagyl 500 mg Oral Tablet - take 1 tablet by ORAL route every 12 hours for 7 days; 14 tablet. Pepcid 20 mg Oral Tablet - take 1 tablet by ORAL route every 12 hours for 10 days; 20 tablet. Zofran 4 mg Oral Tablet - take 1 tablet by ORAL route every 12 hours As needed; 20 tablet. - Medication Reconciliation Form, Thank You Letter, Antibiotic Education, Prescription Opioid Use form. - Follow up: Private Physician; When: 2 - 3 days; Reason: Recheck today's complaints, Continuance of care, Re-evaluation by your physician. Follow up: Atul Pedraza MD; When: 2 - 3 days; Reason: Recheck today's complaints, Re-evaluation by your physician. - Problem is new. - Symptoms have improved. Signatures: Dispatcher [employer] Yun Villavicencio RN RN aj1 Tyron Cochran MD MD cha Gardose, Michele, RN RN mg2 Jens Hebert RN RN ae4 Corrections: (The following items were deleted from the chart) 02:36 01:27 04/30/2019 01:27 Discharged to Home. Impression: Abdominal tenderness; aj1 Gastrointestinal hemorrhage, unspecified - stable. Condition is Stable. Forms are Medication Reconciliation Form, Thank You Letter, Antibiotic Education, Prescription Opioid Use. Follow up: Private Physician; When: 2 - 3 days; Reason: Recheck today's complaints, Continuance of care, Re-evaluation by your physician. Follow up: Atul Pedraza; When: 2 - 3 days; Reason: Recheck today's complaints, Re-evaluation by your physician. Problem is new. Symptoms have improved. gauri
[2019-04-30 03:10] VITALS: TEMP 97.8
[2019-04-30 03:13] VITALS: O2SAT 99
[2019-04-30 03:15] VITALS: BP 110/72
--- NOTE | 2019-04-30 11:41 | RAD REPORT ---
EXAM DESCRIPTION: CT - Abdomen Pelvis W Contrast - 04/30/2019 1:33 am CLINICAL HISTORY: The patient is 28 years old and is Male; ABD PAIN TECHNIQUE: Axial computed tomography images of the abdomen and pelvis with intravenous contrast. S agittal and coronal reformatted images were created and reviewed. This CT exam was performed using one or more of the following dose reduction techniques: automated exposure control, adjustment of t he mA and/or kV according to patient size, and/or use of iterative reconstruction technique. COMPARISON: No relevant prior studies available. FINDINGS: LUNG BASES: Unremarkable. No mass. No consolidation. ABDOMEN: LIVER: Unremarkable. No mass. GALLBLADDER AND BILE DUCTS: No calcified stones. No ductal dilation. PANCREAS: No ductal dilation. No mass. SPLEEN: Unremarkable. ADRENALS: Unremarkable. No mass. KIDNEYS AND URETERS: Unremarkable. The kidneys enhance symmetrically. No obstructing renal or ur eteral calculus is seen. No hydronephrosis or hydroureter. No perinephric fluid or stranding. STOMACH AND BOWEL: The stomach is minimally fluid filled. Small bowel is relatively normal in ca liber. Minimal stool is present throughout colon. There is no mucosal thickening or evidence of bowel obstruction. PELVIS: APPENDIX: The appendix is normal in caliber without surrounding inflammation. BLADDER: Unremarkable. No mass. REPRODUCTIVE: Unremarkable as visualized. ABDOMEN and PELVIS: INTRAPERITONEAL SPACE: Unremarkable. No free air. No significant fluid collection. BONES/JOINTS: No acute fracture. SOFT TISSUES: The soft tissues are normal. VASCULATURE: Unremarkable. No abdominal aortic aneurysm. LYMPH NODES: Unremarkable. No enlarged lymph nodes. IMPRESSION: No acute findings on this contrasted CT of the abdomen and pelvis to explain the patient 's symptoms. Electronically signed by: Natalie Moulton MD 04/30/2019 12:48 AM [employer] SERVICE CAPTAIN Due to temporary technical issues with the PACS/Fluency reporting system, reports are being signed by the in house radiologist as a courtesy to ensure prompt reporting. The interpreting radiologist is f radhaly responsible for the content of the report.
== END 2019-04-30 02:36 | disposition home or self-care (01) ==
LOC: ER 21:46
DX: K62.5 Hemorrhage of anus and rectum (principal); F32.9 Major depressive disorder, single episode, unspecified; Z88.8 Allergy status to other drugs, medicaments and biological substances
CPT/HCPCS: 96365; 96367; 85025; 80048; 36415; 86900; 86850; 86901; 80076; 83690; 74177; 96375; 99284; Q9967; J0744; J7030; J2405

== ENCOUNTER 2021-01-18 15:54 | Emergency (ER) | payer OTHER ==
--- OUTSIDE RECORDS SUMMARY | 2021-01-18 15:57 | XMS REPORT | Continuity of Care Document ---
:[address] [facility] t Address [address] [place] [address] Care Team Providers Name Role Phone Lab, Fam Pob I Attending Clinician Unavailable Doctor Unassigned, Name Attending Clinician Unavailable Sohan HANNAP, N Attending Clinician Problems This patient has no known problems. Allergies, Adverse Reactions, Alerts Allergy Allergy Status Severity Reaction(s) Onset Inactive Treating Comm ents Source Name Type Date Date Clinician Phenerga Adverse Active Info Not [facility] Reaction Available [facility] Ketamine Adverse Active Info Not [facility] Available [facility] Medications Ordered Filled Start Stop Current Ordering Indication Dosage Frequency Signature Comments Components Source Medication Medication Date Date Medication? Clinician (SIG) Name Name Citalopram Citalopram Yes Alon [address] [facility] Hydrobromid Hydrobromid [facility] Clinics Colace Colace Yes Alon [address] [facility] needed [facility] Protonix Protonix Yes Alon [address] [facility] Methylpheni Methylpheni Yes Alon [address] [facility] date HCl date HCl on empty Tana kes - stomach [facility]ics Protonix Protonix Yes Alon [address] [facility] Procedures This patient has no known procedures. Encounters Start End Encounter Admission Attending Care Care Encounter Source Date/Time Date/Time Type Type Clinicians Facility Department ID 2020-12-12 2020-12-12 Outpatient [facility] [id number] [facility]00 [facility] 2020-09-01 2020-09-01 Laboratory Lab, [facility] [id number] 14:34:55 14:54:55 Only [facility]am [facility] [id number] [place] [id number] Professio [phone] nal [address] 2020-09-01 2020-09-01 Letter Doctor ALEX [id number] 00:00:00 00:00:00 (Out) Unassigned, PRITI [id number] [facility] [id number] 2020-09-01 2020-09-01 Letter Doctor ALEX [id number] 00:00:00 00:00:00 (Out) Unassigned, PRITI [id number] [facility]te [facility] [id number] 2020-08-02 2020-08-02 Outpatient [facility] [id number] [facility]00 [facility] Outpati ent Clinics 2020-04-27 2020-04-27 Outpatient [facility] [id number] [facility]00 [facility] 2020-01-26 2020-01-26 [facility] [id number] 10:15:00 10:15:00 t [facility] Clin[facility] 2019-12-31 2019-12-31 [facility] [id number] 11:15:00 11:15:00 t [facility] Clin[facility] 2019-10-21 2019-10-21 [facility] [id number] 11:15:00 11:15:00 t [employer] [facility] Outpati ent Clinics 2019-07-08 2019-07-08 [facility] [id number] 13:45:00 13:45:00 t [employer] [facility] 2019-06-23 2019-06-23 [facility] [id number] 16:28:00 16:28:00 Sequence [employer] [facility] 2019-01-26 2019-02-23 Office [facility] [id number] 10:41:56 12:48:41 Visit [place] [id number] Cancer [id number] Center - [phone] [place] [id number] 2019-02-05 2019-02-05 [facility] [id number] 09:45:00 09:45:00 [employer] [facility] Results This patient has no known results.
--- NOTE | 2021-01-18 20:27 | ER ---
Nurse's Notes [facility] Name: Toy Gloria Age: 30 yrs Sex: Male : 1990 Arrival Date: 01/18/2021 Time: 16:23 Bed Waiting Private MD: Diagnosis: Presentation: 01/18 16:59 Chief complaint: Patient states: Diffuse abdominal pain, clots coming out the rectum jl7 and the mouth, had a colonoscopy a year year ago and Dr. Reyes did it and afterwards had blood all over the place which was not normal and I'm not sure what's going on. Coronavirus screen: Client denies travel out of the [place] in the last 14 days. At this time, the client does not indicate any symptoms associated with coronavirus-19. Ebola Screen: No symptoms or risks identified at this time. Initial Sepsis Screen: Does the patient meet any 2 criteria? No. Patient's initial sepsis screen is negative. Does the patient have a suspected source of infection? No. Patient's initial sepsis screen is negative. Risk Assessment: Do you want to hurt yourself or someone else? Patient reports no desire to harm self or others. Onset of symptoms was January 14, 2021. 16:59 Method Of Arrival: Ambulatory [facility] 16:59 Acuity: CHRISTINA 3 jl7 Historical: - Allergies: 17:02 KETAMINE; jl7 17:02 Phenergan; jl7 17:02 special K; jl7 17:02 Versed; jl7 - PMHx: 17:02 chron's disease; Depression; GERD; Kidney stones; ulcertive colitis; jl7 - PSHx: 17:02 renal stent; jl7 - Immunization history:: Client reports receiving the 1st dose of the Covid vaccine, September 07, 2020 J\T\J. - Social history:: Smoking status: Patient denies any tobacco usage or history of. Vital Signs: 16:59 BP 125 / 90; Pulse 70; Resp 16; Temp 97.6; Pulse Ox 100% ; Weight 56.7 kg; Height 5 ft. jl7 3 in. (160.02 cm); Pain 7/10; 16:59 Body Mass Index 22.14 (56.70 kg, 160.02 cm) 7 ED Course: 16:23 Patient arrived in ED. as 17:02 Triage completed. jl7 17:02 Arm band placed on right wrist. jl7 20:12 Patient's name was called from ER lobby. No response. lp1 20:26 Patient's name was called from ER lobby. Unable to locate patient. Will disposition as lp1 left without being seen by a provider. Administered Medications: No medications were administered Outcome: 20:26 Patient left the ED. lp1 Signatures: Oksana Amezquita Laura RN RN lp1 Iza Cary RN RN jl7
[2021-01-18 20:44] VITALS: BP 125/90; TEMP 97.6; O2SAT 100
== END 2021-01-18 20:26 | disposition left against medical advice (07) ==
LOC: ER 15:54
DX: Z53.21 Procedure and treatment not carried out due to patient leaving prior to being seen by health care provider (principal)
CPT/HCPCS: 99281

== ENCOUNTER 2022-01-05 19:12 | Emergency (ER) | payer OTHER ==
[2022-01-05] MEDS ORDERED: NA CHLORIDE 0.9% 500 ML ONE (19:50)
[2022-01-05 20:03] LABS: Absolute Lymphocytes (CBC) 2.4 K/uL (0.7-4.9); Hematocrit 45.8 % (39.6-49.0); Lymphocytes % 22.3 % (15.3-44.8); MPV 7.7 fL (7.6-11.3); RBC Red Blood Cell Count 5.32 M/uL (4.33-5.43)
[2022-01-05 20:09] LABS: Urine Blood Negative (Negative); Urine Glucose Negative (Negative); Urine Protein Negative (Negative); Urine Specific Gravity 1.015 (1.005-1.030)
[2022-01-05 20:20] LABS: Albumin 4.4 g/dL (3.4-5.0); Bilirubin Total 0.3 mg/dL (0.2-1.0); Potassium 3.4 mmol/L (3.5-5.1); Protein, Total 7.9 g/dL (6.4-8.2)
--- NOTE | 2022-01-05 20:25 | RAD REPORT ---
EXAM DESCRIPTION: CT - Stone Protocol - 01/05/2022 8:05 pm CLINICAL HISTORY: Abdominal pain. Flank pain COMPARISON: 2018 TECHNIQUE: Computed axial tomography of the abdomen pelvis was obtained without oral or IV contrast. Lack of IV and oral contrast limits evaluation of solid organs, appendix, bowel, and vessels. Martin l reformatted images were obtained and reviewed. All CT scans are performed using dose optimization technique as appropriate and may include automated exposure control or mA/KV adjustment according to patient size. FINDINGS: A renal calculus is not seen. An ureteral calculus is not noted. A bladder calculus is not present. The liver, spleen, pancreas and adrenals appear grossly normal There is no evidence of diverticulitis. Mild to moderate chronic rectal wall thickening The appendix appears normal Small umbilical hernia IMPRESSION: Negative for a genitourinary calculus Mild to moderate rectal wall thickening probably indicating chronic ulcerative colitis
--- NOTE | 2022-01-05 21:22 | ER ---
Nurse's Notes [facility] Name: Toy Gloria Age: 31 yrs Sex: Male : 1990 Arrival Date: 01/05/2022 Time: 19:15 Bed 26 [facility] MD: Diagnosis: Pelvic and perineal pain;Rectal Wall Thickening - chronic ulcerative colitis Presentation: 01/05 19:17 Chief complaint: Bilateral flank pain and pain with urination x years, worse over last hb 2 months. Hx of kidney stones. Also reports rectal bleeding and "protruding rectum" due to ulcerative colitis, believes flank pain is making rectum worse. Coronavirus screen: At this time, the client does not indicate any symptoms associated with coronavirus-19. Ebola Screen: No symptoms or risks identified at this time. Risk Assessment: Do you want to hurt yourself or someone else? Patient reports no desire to harm self or others. Onset of symptoms was January 05, 2022. 19:17 Method Of Arrival: Ambulatory hb 19:17 Acuity: CHRISTINA 3 hb 21:41 Initial Sepsis Screen: Does the patient meet any 2 criteria? No. Patient's initial ll3 sepsis screen is negative. Does the patient have a suspected source of infection? No. Patient's initial sepsis screen is negative. Historical: - Allergies: 19:21 KETAMINE; hb 19:21 Phenergan; hb 19:21 special K; hb 19:21 Versed; hb - PMHx: 19:21 chron's disease; Depression; GERD; Kidney stones; ulcertive colitis; hb - PSHx: 19:21 renal stent; hb - Immunization history:: Adult Immunizations up to date. - Social history:: Smoking status: Patient reports the use of cigarette tobacco products, smokes one-half pack cigarettes per day. Screenin:40 Abuse screen: Denies threats or abuse. Nutritional screening: No deficits noted. ll3 Tuberculosis screening: No symptoms or risk factors identified. Fall Risk No fall in past 12 months (0 pts). No secondary diagnosis (0 pts). IV access (20 points). Ambulatory Aid- None/Bed Rest/Nurse Assist (0 pts). Gait- Normal/Bed Rest/Wheelchair (0 pts) Mental Status- Oriented to own ability (0 pts). Total Randolph Fall Scale indicates No Risk (0-24 pts). Assessment: 19:30 General: Appears uncomfortable, Behavior is calm, cooperative. Pain: Complains of pain ll3 in groin, right and left flank Pain currently is 8 out of 10 on a pain scale. Neuro: Level of Consciousness is awake, alert, obeys commands, Oriented to person, place, time, situation. Respiratory: Respiratory effort is even, unlabored, Respiratory pattern is regular, symmetrical. GI: Bowel sounds present X 4 quads. Abd is soft and non tender X 4 quads. : Urine is clear, Reports discharge, inability to void, pain. Derm: Skin is. 20:57 Reassessment: No changes from previously documented assessment. Patient and/or family ll3 updated on plan of care and expected duration. Pain level reassessed. Patient is alert, oriented x 3, equal unlabored respirations, skin warm/dry/pink. Vital Signs: 19:17 BP 123 / 92; Pulse 96; Resp 16; Temp 98.5; Pulse Ox 99% on R/A; Weight 64.86 kg; Height hb 5 ft. 3 in. (160.02 cm); Pain 7/10; 20:57 BP 120 / 84; Pulse 72; Resp 16; Pulse Ox 96% on R/A; ll3 19:17 Body Mass Index 25.33 (64.86 kg, 160.02 cm) hb ED Course: 19:15 Patient arrived in ED. ja2 19:20 Pino Brown MD is Attending Physician. kdr 19:21 Triage completed. hb 19:21 Arm band placed on. hb 19:58 Initial lab(s) drawn, by me, sent to lab. Inserted saline lock: 22 gauge in left ll3 antecubital area, using aseptic technique. Blood collected. 20:07 CT Stone Protocol In Process Unspecified. EDMS 20:57 Sandro Hays, ANGIE is Primary Nurse. ll3 21:41 Patient has correct armband on for positive identification. Bed in low position. Call ll3 light in reach. Side rails up X 1. 21:41 No provider procedures requiring assistance completed. IV discontinued, intact, ll3 bleeding controlled, No redness/swelling at site. Pressure dressing applied. Administered Medications: 19:50 Drug: NS 0.9% 500 ml Route: IV; Rate: bolus; Site: left antecubital; ll3 21:41 Follow up: Response: No adverse reaction; IV Status: Completed infusion; IV Intake: ll3 500ml Medication: 21:41 VIS not applicable for this client. ll3 Intake: 21:41 IV: 500ml; Total: 500ml. ll3 Outcome: 21:21 Discharge ordered by . kdr 21:41 Discharged to home ambulatory. ll3 21:41 Condition: stable 21:41 Discharge instructions given to patient, Instructed on discharge instructions, follow up and referral plans. medication usage, Demonstrated understanding of instructions, follow-up care, medications, Prescriptions given X 1. 21:42 Patient left the ED. ll3 Signatures: Dispatcher [employer] EDMS Pino Brown MD MD kdr Baxter, Heather RN RN Mamie Enamorado Lynsea, ANGIE RN ll3
--- NOTE | 2022-01-05 21:22 | EDPHYS ---
Physician Documentation [facility] Name: Toy Gloria Age: 31 yrs Sex: Male : 1990 Arrival Date: 01/05/2022 Time: 19:15 Bed 26 Private MD: ED Physician Pino Brown HPI: 01/05 22:16 This 31 yrs old Male presents to ER via Ambulatory with complaints of Flank kdr Pain, Rectal Pain, Possible Kidney Stone. 22:16 Patient presents to the ED complaining of pain with urination for many months even kdr years. He is also had low back and flank pain bilaterally. This has been going on for the last 2 months. He has a history of kidney stones. He also reports rectal bleeding and protruding rectum from time to time. This he states is due to his recurrent ulcerative colitis. He currently believes that his flank pain is making his rectal discomfort worse. He denies change in urination except for that it is urine is green at this time. He denies blood in his stool currently. He denies protrusion of his rectum at this time.. Onset: The symptoms/episode began/occurred gradually, 3 day(s) ago. Severity of symptoms: At their worst the symptoms were mild moderate just prior to arrival, in the emergency department the symptoms are unchanged. The patient has experienced similar episodes in the past, chronically. The patient has not recently seen a physician. Historical: - Allergies: 19:21 KETAMINE; hb 19:21 Phenergan; hb 19:21 special K; hb 19:21 Versed; hb - PMHx: 19:21 chron's disease; Depression; GERD; Kidney stones; ulcertive colitis; hb - PSHx: 19:21 renal stent; hb - Immunization history:: Adult Immunizations up to date. - Social history:: Smoking status: Patient reports the use of cigarette tobacco products, smokes one-half pack cigarettes per day. ROS: 22:16 Constitutional: Negative for fever, chills, and weight loss, Eyes: Negative for injury, kdr pain, redness, and discharge, ENT: Negative for injury, pain, and discharge, Neck: Negative for injury, pain, and swelling, Cardiovascular: Negative for chest pain, palpitations, and edema, Respiratory: Negative for shortness of breath, cough, wheezing, and pleuritic chest pain, MS/Extremity: Negative for injury and deformity, Skin: Negative for injury, rash, and discoloration, Neuro: Negative for headache, weakness, numbness, tingling, and seizure activity. Psych: Negative for depression, anxiety, suicide ideation, homicidal ideation, and hallucinations, Allergy/Immunology: Negative for hives, rash, and allergies, Endocrine: Negative for neck swelling, polydipsia, polyuria, polyphagia, and marked weight changes, Hematologic/Lymphatic: Negative for swollen nodes, abnormal bleeding, and unusual bruising. 22:16 Abdomen/GI: Positive for abdominal pain, rectal pain, Negative for diarrhea, constipation, abdominal cramps, abdominal distension, anorexia, dysphagia, hematemesis, black/tarry stool, rectal bleeding, bowel incontinence. 22:16 Back: Positive for flank pain, bilaterally. Exam: 22:16 Constitutional: This is a well developed, well nourished patient who is awake, alert, kdr and in no acute distress. Head/Face: Normocephalic, atraumatic. Eyes: Pupils equal round and reactive to light, extra-ocular motions intact. Lids and lashes normal. Conjunctiva and sclera are non-icteric and not injected. Cornea within normal limits. Periorbital areas with no swelling, redness, or edema. Neck: Trachea midline, no thyromegaly or masses palpated, and no cervical lymphadenopathy. Supple, full range of motion without nuchal rigidity, or vertebral point tenderness. No Meningismus. Chest/axilla: Normal chest wall appearance and motion. Nontender with no deformity. No lesions are appreciated. Cardiovascular: Regular rate and rhythm with a normal S1 and S2. No gallops, murmurs, or rubs. Normal PMI, no JVD. No pulse deficits. Respiratory: Lungs have equal breath sounds bilaterally, clear to auscultation and percussion. No rales, rhonchi or wheezes noted. No increased work of breathing, no retractions or nasal flaring. Back: No spinal tenderness. No costovertebral tenderness. Full range of motion. Skin: Warm, dry with normal turgor. Normal color with no rashes, no lesions, and no evidence of cellulitis. MS/ Extremity: Pulses equal, no cyanosis. Neurovascular intact. Full, normal range of motion. Neuro: Awake and alert, GCS 15, oriented to person, place, time, and situation. Cranial nerves II-XII grossly intact. Motor strength 5/5 in all extremities. Sensory grossly intact. Cerebellar exam normal. Normal gait. Psych: Awake, alert, with orientation to person, place and time. Behavior, mood, and affect are within normal limits. 22:16 Abdomen/GI: Inspection: abdomen appears normal, Bowel sounds: normal, Palpation: soft, mild abdominal tenderness, Patient has very minimal bilateral anterior lower pelvic pain. It is also only with palpation. Vital Signs: 19:17 BP 123 / 92; Pulse 96; Resp 16; Temp 98.5; Pulse Ox 99% on R/A; Weight 64.86 kg; Height hb 5 ft. 3 in. (160.02 cm); Pain 7/10; 20:57 BP 120 / 84; Pulse 72; Resp 16; Pulse Ox 96% on R/A; ll3 19:17 Body Mass Index 25.33 (64.86 kg, 160.02 cm) hb MDM: 21:21 Patient medically screened. kdr 22:16 Data reviewed: vital signs, nurses notes, lab test result(s), radiologic studies. kdr Counseling: I had a detailed discussion with the patient and/or guardian regarding: the historical points, exam findings, and any diagnostic results supporting the discharge/admit diagnosis, lab results, radiology results, the need for outpatient follow up. Special discussion: Based on the patient's Hx, exam, and Dx evaluation, there is no indication for emergent surgery or inpatient Tx. It is understood by the patient/guardian that if the Sx's persist or worsen they need to return immediately for re-evaluation. 01/05 19:39 Order name: CBC with Diff; Complete Time: 20:34 kdr 01/05 19:39 Order name: CMP; Complete Time: 20:34 kdr 01/05 19:39 Order name: Lipase; Complete Time: 20:34 kdr 01/05 19:39 Order name: CT Stone Protocol; Complete Time: 20:34 kdr 01/05 20:09 Order name: Urine Dipstick-Ancillary; Complete Time: 20:34 EDMS 01/05 19:39 Order name: IV Saline Lock; Complete Time: 19:58 kdr 01/05 19:39 Order name: Labs collected and sent; Complete Time: 19:58 kdr 01/05 19:39 Order name: Urine Dipstick-Ancillary (obtain specimen); Complete Time: 20:08 kdr Administered Medications: 19:50 Drug: NS 0.9% 500 ml Route: IV; Rate: bolus; Site: left antecubital; ll3 21:41 Follow up: Response: No adverse reaction; IV Status: Completed infusion; IV Intake: ll3 500ml Disposition Summary: 01/05/22 21:21 Discharge Ordered Location: Home kdr Problem: an acute exacerbation kdr Symptoms: have improved kdr Condition: Stable kdr Diagnosis - Pelvic and perineal pain kdr - Rectal Wall Thickening - chronic ulcerative colitis kdr Followup: kdr - With: Private Physician - When: 2 - 3 days - Reason: If symptoms return, Further diagnostic work-up, Recheck today's complaints, Continuance of care, Re-evaluation by your physician Discharge Instructions: - Discharge Summary Sheet kdr - Abdominal Pain, Adult kdr - Ulcerative Colitis, Adult kdr Forms: - Medication Reconciliation Form kdr - Thank You Letter kdr Prescriptions: - Miralax - take 1 packet by ORAL route once daily As needed; 1 box; Refills: 0, Product kdr Selection Permitted Signatures: Dispatcher [employer] Pino Amos MD MD kdr Halima Harris, RN RN Sandro Hays RN RN ll3
[2022-01-05 22:15] VITALS: TEMP 98.5
[2022-01-05 22:33] VITALS: BP 120/84; O2SAT 96
== END 2022-01-05 21:42 | disposition home or self-care (01) ==
LOC: ER 19:12
DX: K51.90 Ulcerative colitis, unspecified, without complications (principal); F17.210 Nicotine dependence, cigarettes, uncomplicated; Z88.8 Allergy status to other drugs, medicaments and biological substances; Z87.442 Personal history of urinary calculi
CPT/HCPCS: 96361; 85025; 36415; 81003; 83690; 80053; 76377; 74176; 96360; 99284; J7040

== ENCOUNTER → 2023-06-18 | Emergency (ER) | payer OTHER ==
[~2023-06-18] MED LIST: NA CHLORIDE 0.9% 1,000 ML ONE
--- OUTSIDE RECORDS SUMMARY | 2023-06-18 14:46 | XMS REPORT | Continuity of Care Document ---
Author Name Unknown Address [address] [facility] [address] [place] [address] [facility] thconnect Address [address] [facility] [address] [place] [address] Care Team Providers Care Manager Transportation Planning Name Role Phone ALON PATEL Primary Care Physician Unavailab Alon Brush Attending Clinician Unavailable TERESA PARRY Attending Clinician UnavailTeresa Freed Attending Clinician Doctor Unassigned, Pettit Attending Clinician U navailable Lab, Adc Fam Pob I Attending Clinician UnavailJÚNIOR Cervantes Attending Clinician Unavailable TERESA PARRY Admitting Clinician Unavailbree avery Payers Payer Name Policy Type Policy Number Effective Date Expirati on Date Source [facility] [id number] 2018 00:00:00 [facility] [id number] 2017 00:00:00 [facility] Problems Condition Name Condition Details Condition Category Status Onset Date Resolution Date Last Treatment Date Treating Clinician Comments Source Dysuria Dysuria Disease Active 11-16 00:00: 00 [facility] Lower urinary tract symptoms (LUTS) Lower urinary tract symptoms (LUTS) Disease Active 11-16 00:00: 00 [facility] Tinea cruris Tinea cruris Disease Active 6-10 00:00: 00 [facility] Urethritis Urethritis Disease Active 6-10 00:00: 00 [facility] GI bleed GI bleed Disease Active 8-14 00:00: 00 [facility] Routine or child health check Routine infant or child health check Disease Active 01-12 00:00: 00 Overview: Formattin g of this note might be different from the original. 15 YEAR [facility] Depression Depression Problem Active [facility] Gastroesop hageal reflux disease GERD (gastroeso phageal reflux disease) Problem Active [facility] Attention deficit hyperactiv ity disorder ADHD (attention deficit hyperactiv ity disorder) Problem Active [facility] [id number] Mild mental retardatio n Problem Active [facility] [id number] Hypertrigl yceridemia Problem Active [facility] [id number] Mitral valve prolapse Problem Active [facility] [id number] alcohol syndrome Problem Active [facility] [id number] [place] ulcerative (chronic) colitis Problem Active [facility] [id number] Crohn's disease of colon with complicati on Problem Active [facility] Allergies, Adverse Reactions, Alerts Allergy Name Allergy Type Status Severity Reaction(s) Onset Date Inactive Date Treating Clinician Comments Source KETAMINE DRUG INGREDI Active Other-Cmnt 2-18 00:00: 00 [facility] CALAMINE DRUG INGREDI Active Unknown-Cmnt 01-07 00:00: 00 [facility] Calamine Propensi ty to adverse reaction s Active Unknown - See comments 01-07 00:00: 00 [facility] DEXTROME THORPHAN -GUAIFEN ESIN DRUG Active Unknown-Cmnt 01-12 00:00: 00 [facility] PROMETHA ZINE HCL DRUG INGREDI Active Unknown-Cmnt 01-12 00:00: 00 [facility] MIDAZOLA M HCL DRUG INGREDI Active Unknown-Cmnt 01-12 00:00: 00 [facility] Dextrome thorphan -Guaifen esin Propensi ty to adverse reaction s Active Unknown - See comments 01-12 00:00: 00 [facility] Prometha zine Hcl Propensi ty to adverse reaction s Active Unknown - See comments 01-12 00:00: 00 [facility] Midazola m Hcl Propensi ty to adverse reaction s Active Unknown - See comments 01-12 00:00: 00 [facility]eth[facility]ine Active Unknown [facility] ketamine ketamine Active Unknown [facility] Social History Social Habit Start Date Stop Date Quantity Comments Source History of Tobacco Use [facility] Sex Assigned At [facility] History SDOH Alcohol Std Drinks [facility] History SDOH Alcohol Binge [facility] Exposure to SARS-CoV-2 (event) 2021-11-05 00:00:00 2021-11-15 08:42:00 Not sure [facility] Alcohol intake 2021-11-15 00:00:00 2021-11-15 00:00:00 Current drinker of alcohol (finding) [facility] Tobacco use and exposure 2021-01-20 00:00:00 2021-01-20 00:00:00 User of smokeless tobacco [facility] Alcohol Comment 2021-01-20 00:00:00 2021-01-20 00:00:00 glass of wine [facility] History SDOH Alcohol Frequency 2019-01-26 00:00:00 2019-01-26 00:00:00 1 [facility] Smoking Status Start Date Stop Date Source Never Smoker [facility] Ex-smoker 2021-01-20 00:00:00 2021-01-[facility] Ordered Medication Name Filled Medication Name Start Date Stop Date Current Medication? Ordering Clinician Indication Dosage Frequency Signature (SIG) Comments Components Source iopamidol (ISOVUE 370-500 mL) injection 250 mL 01-30 17:30: 00 01-30 16:17 :00 No [id number] 250mL 250 mL, Oral, ONCE, 1 dose, On Fri01/30/22 at 1230, Routine [facility] doxycycline hyclate 100 mg tablet 11-15 00:00: 00 Yes [id number] 100mg Take 1 tablet by mouth 2 (two) times daily with meals. [facility] clotrimazol e 1 % topical cream 11-15 00:00: 00 Yes [id number] Apply to area(s) at bedtime. For 7-14 days [facility] doxycycline hyclate 100 mg tablet 11-15 00:00: 00 Yes [id number] 100mg Take 1 tablet by mouth 2 (two) times daily with meals. [facility] clotrimazol e 1 % topical cream 11-15 00:00: 00 Yes [id number] Apply to area(s) at bedtime. For 7-14 days [facility] citalopram 40 mg tablet 01-20 16:34: 35 Yes 40mg Take 40 mg by mouth daily. [facility] Pantoprazol e 40 mg delayed-rel ease suspension 01-20 16:34: 35 Yes 40mg Take 40 mg by mouth daily. [facility] Methylpheni date HCl 10 mg Chew 01-20 16:34: 35 Yes Take by mouth. [facility] citalopram 40 mg tablet 01-20 16:34: 35 Yes 40mg Take 40 mg by mouth daily. [facility] Pantoprazol e 40 mg delayed-rel ease suspension 01-20 16:34: 35 Yes 40mg Take 40 mg by mouth daily. [facility] Methylpheni date HCl 10 mg Chew 01-20 16:34: 35 Yes Take by mouth. [facility] Protonix Protonix Yes Alon 1 tablet [facility] Methylpheni date HCl Methylpheni date HCl Yes Alon 1 tablet on empty stomach Common [facility] Protonix Protonix Yes Alon 1 tablet [facility] Methylpheni date HCl 10 MG Methylpheni date HCl 10 MG No BID Methylphen idate HCl 10 MG Protonix 40 MG Protonix 40 MG No 1{table t} QD Protonix 40 MG Protonix 40 MG Protonix 40 MG No 1{table t} QD Protonix 40 MG Citalopram Hydrobromid e 20 MG Citalopram Hydrobromid e 20 MG No 1{table t} QD Citalopram Hydrobromi de 20 MG Colace 100 MG Colace 100 MG No 1{capsu le_as_n eeded} QD Colace 100 MG Colace 100 MG Colace 100 MG No 1{capsu le_as_n eeded} QD Colace 100 MG Protonix 40 MG Protonix 40 MG No 1{table t} QD Protonix 40 MG Methylpheni date HCl 10 MG Methylpheni date HCl 10 MG No BID Methylphen idate HCl 10 MG Pantoprazol e Sodium 40 MG Pantoprazol e Sodium 40 MG No Pantoprazo le Sodium 40 MG Citalopram Hydrobromid e 20 MG Citalopram Hydrobromid e 20 MG No 1{table t} QD Citalopram Hydrobromi de 20 MG Protonix 40 MG Protonix 40 MG No 1{table t} QD Protonix 40 MG Citalopram Hydrobromid e 20 MG Citalopram Hydrobromid e 20 MG No 1{table t} QD Citalopram Hydrobromi de 20 MG Methylpheni date HCl 10 MG Methylpheni date HCl 10 MG No BID Methylphen idate HCl 10 MG Protonix 40 MG Protonix 40 MG No 1{table t} QD Protonix 40 MG Colace 100 MG Colace 100 MG No 1{capsu le_as_n eeded} QD Colace 100 MG Citalopram Hydrobromid e 20 MG Citalopram Hydrobromid e 20 MG No 1{table t} QD Citalopram Hydrobromi de 20 MG Methylpheni date HCl 10 MG Methylpheni date HCl 10 MG No BID Methylphen idate HCl 10 MG Colace 100 MG Colace 100 MG No 1{capsu le_as_n eeded} QD Colace 100 MG Protonix 40 MG Protonix 40 MG No 1{table t} QD Protonix 40 MG Protonix 40 MG Protonix 40 MG No 1{table t} QD Protonix 40 MG Citalopram Hydrobromid e 20 MG Citalopram Hydrobromid e 20 MG No 1{table t} QD Citalopram Hydrobromi de 20 MG Methylpheni date HCl 10 MG Methylpheni date HCl 10 MG No BID Methylphen idate HCl 10 MG Colace 100 MG Colace 100 MG No 1{capsu le_as_n eeded} QD Colace 100 MG Protonix 40 MG Protonix 40 MG No 1{table t} QD Protonix 40 MG Protonix 40 MG Protonix 40 MG No 1{table t} QD Protonix 40 MG Protonix 40 MG Protonix 40 MG No 1{table t} QD Protonix 40 MG Colace 100 MG Colace 100 MG No 1{capsu le_as_n eeded} QD Colace 100 MG Protonix 40 MG Protonix 40 MG No 1{table t} QD Protonix 40 MG Citalopram Hydrobromid e 20 MG Citalopram Hydrobromid e 20 MG No 1{table t} QD Citalopram Hydrobromi de 20 MG Methylpheni date HCl 10 MG Methylpheni date HCl 10 MG No BID Methylphen idate HCl 10 MG Citalopram Hydrobromid e Citalopram Hydrobromid e Yes Alon 1 tablet [facility] Colace Colace Yes Alon 1 capsule as needed [facility] Vital Signs Vital Name Observation Time Observation Value Comments S ource Heart rate 2021-11-15 13:45:00 81 /min [facility] Respiratory rate 2021-11-15 13:45:00 18 /min [facility] Body weight 2021-11-15 13:45:00 66.951 kg [facility] BMI 2021-11-15 13:45:00 26.15 kg/m2 [facility] Oxygen saturation in Arterial blood by Pulse oximetry 2021-11-15 13:45:00 97 /min [facility] Systolic blood pressure 2021-11-15 13:45:00 113 mm[Hg] [facility] Diastolic blood pressure 2021-11-15 13:45:00 69 mm[Hg] [facility] height 2021-07-31 10:00:00 63 [in_i] Commo n [facility] weight 2021-07-31 10:00:00 158 [lb_av] Comm on [facility] temperature 2021-07-31 10:00:00 97.4 [degF] Com mon [facility] bmi 2021-07-31 10:00:00 27.99 kg/m2 [facility] oximetry 2021-07-31 10:00:00 98 % [facility] respiratory rate 2021-07-31 10:00:00 17 /min [facility] blood pressure systolic 2021-07-31 10:00:00 106 mm[Hg] [facility] blood pressure diastolic 2021-07-31 10:00:00 69 mm[Hg] [facility] height 2021-03-15 14:50:00 63 [in_i] [facility]mo n [facility] weight 2021-03-15 14:50:00 149.1 [lb_av] Co mmon [facility] temperature 2021-03-15 14:50:00 97.5 [degF] Com mon [facility] bmi 2021-03-15 14:50:00 26.41 kg/m2 Comm on [facility] oximetry 2021-03-15 14:50:00 99 % [facility] respiratory rate 2021-03-15 14:50:00 17 /min [facility] blood pressure systolic 2021-03-15 14:50:00 121 mm[Hg] [facility] blood pressure diastolic 2021-03-15 14:50:00 74 mm[Hg] [facility] height 2021-02-16 08:40:00 63 [in_i] [facility]mo [facility] weight 2021-02-16 08:40:00 153.2 [lb_av] Co mmon [facility] temperature 2021-02-16 08:40:00 97.5 [degF] Com mon [facility] bmi 2021-02-16 08:40:00 27.14 kg/m2 Comm on [facility] oximetry 2021-02-16 08:40:00 98 % [facility] respiratory rate 2021-02-16 08:40:00 16 /min [facility] blood pressure systolic 2021-02-16 08:40:00 112 mm[Hg] [facility] blood pressure diastolic 2021-02-16 08:40:00 80 mm[Hg] [facility] height 2020-12-12 10:30:00 63 [in_i] [facility]mo [facility] weight 2020-12-12 10:30:00 155 [lb_av] Comm on [facility] temperature 2020-12-12 10:30:00 97.5 [degF] Com mon [facility] bmi 2020-12-12 10:30:00 27.45 kg/m2 Comm [facility] height 2020-08-02 16:40:00 63 [in_i] [facility] weight 2020-08-02 16:40:00 156 [lb_av] [facility] temperature 2020-08-02 16:40:00 98 [degF] [facility] bmi 2020-08-02 16:40:00 27.63 kg/m2 [facility] blood pressure systolic 2020-08-02 16:40:00 118 mm[Hg] [facility] blood pressure diastolic 2020-08-02 16:40:00 78 mm[Hg] [facility] Procedures Procedure Date / Time Performed Performing Clinician Source FL RETROGRADE URETHROGRAPHY 2022-01-30 16:24:33 Teresa Parry [facility] URINALYSIS 2021-11-15 16:11:00 Teresa Parry [facility] URINE CULTURE 2021-11-15 16:11:00 Teresa Parry [facility] GC & CHLAMYDIA AMPLIFIED ASSAY 2021-11-15 16:11:00 Teresa Parry [facility] CULTURE UREAPLASMA SPP AND M HOMINIS 2021-11-15 16:11:00 Teresa Parry [facility] TRICHOMONAS AMPLIFIED ASSAY 2021-11-15 16:11:00 Teresa Parry [facility] Encounters Start Date/Time End Date/Time Encounter Type Admission Type Attending [facility] Care Facility Care Department Encounter ID Source 2021-07-04 14:31:43 Outpatient , [facility] [id number] [facility] 2021-07-04 12:32:38 Outpatient , [facility] [id number] [facility] 2021-07-04 12:31:59 Outpatient , [facility] [id number] [facility] 2021-07-04 12:26:36 Outpatient , [facility] [id number] [facility] 2021-07-04 12:06:22 Outpatient , [facility] [id number] [facility] 2021-07-04 11:19:35 Outpatient , [facility] [id number] [facility] 2021-07-04 11:19:04 Outpatient , [facility] [id number] [facility] 2021-07-04 11:04:27 Outpatient , [facility] [id number] [facility] 2021-07-04 11:01:16 Outpatient Alon Patel [facility] [id number] [facility] 2021-04-09 15:30:04 Emergency [facility] [id number] [facility] 2022-01-30 10:01:12 2022-01-30 23:59:00 Outpatient Timothy MEGGAN TERESA [facility] [id number] [facility] 2022-01-30 10:01:12 2022-01-30 23:59:00 Hospital Encounter Teresa Parry [facility] 1..840.114 [id number] [facility] 2021-12-05 00:00:00 2021-12-05 00:00:00 Outpatient TERESA UMANA [facility] [id number] [facility] 2021-11-15 11:15:00 2021-11-15 11:45:00 Office Visit Teresa Parry [facility] 1..840.114 [id number] [facility] 2021-11-15 11:15:00 2021-11-15 11:15:00 Outpatient Timothy TERESA PARRY [facility] [id number] [facility] 2021-11-15 11:15:00 2021-11-15 11:15:00 [facility] [id number] [facility] 2021-11-12 00:00:00 2021-11-12 00:00:00 Orders Only Doctor Unassigned, Pettit [facility] 1..840.114 [id number] [facility] 2021-07-31 00:00:00 2021-07-31 00:00:00 OFFICE VISIT EST PT LEVEL 3 [facility] [id number] [facility] 2021-03-15 00:00:00 2021-03-15 00:00:00 PREV VISIT EST AGE 18-39 [facility] ST[facility] [id number] [facility] 2021-02-16 00:00:00 2021-02-16 00:00:00 OFFICE VISIT ESTAB PT LEVEL 4 [facility] STL[facility]C [id number] [facility] 2021-01-18 00:00:00 2021-01-18 00:00:00 (TEL) STLMLC STL[facility]C [id number] [facility] 2020-12-12 00:00:00 2020-12-12 00:00:00 OFFICE VISIT EST PT LEVEL 3 [facility]LMLC STLMLC [id number] [facility] 2020-09-01 14:34:55 2020-09-01 14:54:55 Laboratory Only Lab, Adc Fam Pob I [facility] [address] ..114 [id number] [id number] 2020-09-01 14:40:00 2020-09-01 14:40:00 Outpatient JÚNIOR DUKES [facility] [id number] [facility] 2020-09-01 00:00:00 2020-09-01 00:00:00 Letter (Out) Doctor Unassigned, Pettit [facility] 1..114 [id number] [id number] 2020-09-01 00:00:00 2020-09-01 00:00:00 Letter (Out) Doctor Unassigned, Pettit [facility] 1..114 [id number] [id number] 2020-08-02 00:00:00 2020-08-02 00:00:00 OFFICE VISIT ESTAB PT LEVEL 4 [facility]C STL[facility]C [id number] [facility] 2020-04-27 00:00:00 2020-04-27 00:00:00 Outpatient [facility] [id number] [facility] 2020-01-26 10:15:00 2020-01-26 10:15:00 [facility] [id number] [facility] 2019-12-31 11:15:00 2019-12-31 11:15:00 [facility] [id number] [facility] 2019-10-21 11:15:00 2019-10-21 11:15:00 [facility] [id number] [facility] 2019-07-08 13:45:00 2019-07-08 13:45:00 [facility] [id number] [facility] 2019-06-23 16:28:00 2019-06-23 16:28:00 [facility] [id number] [facility] 2019-01-26 10:41:56 2019-02-23 12:48:41 Office Visit Teresa Parry [facility] [id number] [id number] 2019-02-05 09:45:00 2019-02-05 09:45:00 [facility] [id number] [facility]
[2023-06-18 15:06] LABS: Absolute Lymphocytes (CBC) 2.3 K/uL (0.7-4.9); Hematocrit 42.5 % (39.6-49.0); Lymphocytes % 16.1 % (15.3-44.8); MCV 86.9 fL (80-100); MPV 7.7 fL (7.6-11.3); Platelets 327 thou/uL (152-406); RBC Red Blood Cell Count 4.89 M/uL (4.33-5.43)
[2023-06-18 15:20] LABS: Protime INR 1.08
[2023-06-18 15:24] LABS: Albumin 3.9 g/dL (3.4-5.0); Bilirubin Total 0.4 mg/dL (0.2-1.0); Potassium 3.6 mEq/L (3.5-5.1); Protein, Total 7.2 g/dL (6.4-8.2)
--- NOTE | 2023-06-18 16:18 | RAD REPORT ---
EXAM DESCRIPTION: CT - Abdomen Pelvis W Contrast - 06/18/2023 3:58 pm CLINICAL HISTORY: Abdominal pain COMPARISON: 2021 TECHNIQUE: Computed axial tomography of the abdomen pelvis was obtained. 100 cc Isovue-300 was admin istered intravenously. Oral contrast was not requested which limits evaluation of bowel and appendix All CT scans are performed using dose optimization technique as appropriate and may include automated exposure control or mA/KV adjustment according to patient size. FINDINGS: The liver, spleen, pancreas, adrenal and kidneys appear unremarkable. There is no evidence of diverticulitis. Marked rectal wall thickening. Normal appendix. Small umbilical hernia IMPRESSION: Marked rectal wall thickening having the appearance of inflammatory bowel disease
--- NOTE | 2023-06-18 16:27 | EDPHYS ---
Physician Documentation [facility] Name: Toy Gloria Age: 32 yrs Sex: Male : 1990 Arrival Date: 06/18/2023 Time: 14:43 Bed 19 Private MD: ED Physician Annika Patel HPI: 06/18 15:03 This 32 yrs old Male presents to ER via Unassigned with complaints of rectal sp3 bleeding. 15:03 32-year-old male with known Crohn's disease, known rectal prolapse and routine sp3 occasional GI bleeding with stools now presents to the ED in the custody of [facility] due to medical clearance prior to incarceration. At the longterm, patient had some rectal bleeding as reported by EMS and police staff. Patient states he has mild abdominal discomfort but no active bleeding. He is on medications for his Crohn's but he cannot recall the names. He states that his mother provides them to him. He denies emesis, any other bleeding, syncope, near syncope, chest pain, back pain, or any other signs or symptoms on ROS at this time.. Historical: - Allergies: 15:05 KETAMINE; cm10 15:05 Phenergan; cm10 15:05 special K; cm10 15:05 Versed; cm10 - PMHx: 15:05 chron's disease; Depression; GERD; Kidney stones; ulcertive colitis; cm10 - PSHx: 15:05 renal stent; cm10 - Immunization history:: Adult Immunizations up to date. - Social history:: Smoking status: Patient reports the use of cigarette tobacco products, smokes one pack cigarettes per day. ROS: 15:05 Constitutional: Negative for fever, chills, and weight loss, Eyes: Negative for injury, sp3 pain, redness, and discharge, ENT: Negative for injury, pain, and discharge, Neck: Negative for injury, pain, and swelling, Cardiovascular: Negative for chest pain, palpitations, and edema, Respiratory: Negative for shortness of breath, cough, wheezing, and pleuritic chest pain, Back: Negative for injury and pain, MS/Extremity: Negative for injury and deformity, Skin: Negative for injury, rash, and discoloration, Neuro: Negative for headache, weakness, numbness, tingling, and seizure, Psych: Negative for depression, anxiety, suicide ideation, homicidal ideation, and hallucinations, Allergy/Immunology: Negative for hives, rash, and allergies, Endocrine: Negative for neck swelling, polydipsia, polyuria, polyphagia, and marked weight changes, Hematologic/Lymphatic: Negative for swollen nodes, abnormal bleeding, and unusual bruising, 15:05 All other systems are negative, Exam: 15:06 Constitutional: This is a well developed, well nourished patient who is awake, alert, sp3 and in no acute distress. Head/Face: Normocephalic, atraumatic. Eyes: Pupils equal round and reactive to light, extra-ocular motions intact. Lids and lashes normal. Conjunctiva and sclera are non-icteric and not injected. Cornea within normal limits. Periorbital areas with no swelling, redness, or edema. ENT: Nares patent. No nasal discharge, no septal abnormalities noted. External auditory canals are clear. Oropharynx with no redness, swelling, or masses, exudates, or evidence of obstruction, uvula midline. Mucous membranes moist. Neck: Trachea midline, no thyromegaly or masses palpated, and no cervical lymphadenopathy. Supple, full range of motion without nuchal rigidity, or vertebral point tenderness. No Meningismus. Chest/axilla: Normal chest wall appearance and motion. Nontender with no deformity. No lesions are appreciated. Cardiovascular: Regular rate and rhythm with a normal S1 and S2. No gallops, murmurs, or rubs. Normal PMI, no JVD. No pulse deficits. Respiratory: Lungs have equal breath sounds bilaterally, clear to auscultation and percussion. No rales, rhonchi or wheezes noted. No increased work of breathing, no retractions or nasal flaring. Back: No spinal tenderness. No costovertebral tenderness. Full range of motion. Skin: Warm, dry with normal turgor. Normal color with no rashes, no lesions, and no evidence of cellulitis. MS/ Extremity: Pulses equal, no cyanosis. Neurovascular intact. Full, normal range of motion. Neuro: Awake and alert, GCS 15, oriented to person, place, time, and situation. Cranial nerves II-XII grossly intact. Motor strength 5/5 in all extremities. Sensory grossly intact. Cerebellar exam normal. Normal gait. Psych: Awake, alert, with orientation to person, place and time. Behavior, mood, and affect are within normal limits. 15:06 Abdomen/GI: Soft abdomen without peritoneal signs, rebound or guarding. Mild pain diffusely noted. No active rectal GI bleeding., Vital Signs: 15:00 BP 121 / 77; Pulse 63; Resp 18; Pulse Ox 98% on R/A; cm10 15:02 BP 118 / 78; Pulse 66; Resp 18; Temp 98; Pulse Ox 98% on R/A; Weight 63.5 kg; Height 5 cm10 ft. 3 in. ; Pain 8/10; 16:20 BP 124 / 82; Pulse 70; Resp 16; Pulse Ox 99% ; cm10 15:02 Body Mass Index 24.80 (63.50 kg, 160.02 cm) cm10 15:02 Pain Scale: Adult cm10 MDM: 14:53 Patient medically screened. sp3 15:06 Data reviewed: vital signs, nurses notes, lab test result(s), radiologic studies. ED sp3 course: 32-year-old male here for evaluation of possible Crohn's flare. Will obtain laboratory values and CT scan of the abdomen pelvis. If no significant anemia and/or no significant findings on remainder of workup, we will safely discharge patient to the custody of [facility].. 16:26 ED course: Patient has rectal wall thickening without rupture or other abnormality. sp3 Appendix is normal. Laboratory values are normal including H\T\H. We will safely discharge him back to custody at this time.. 06/18 14:54 Order name: CBC with Diff; Complete Time: 15:26 3 06/18 14:54 Order name: CMP; Complete Time: 15:26 sp06/18 14:54 Order name: Lipase; Complete Time: 15:26 sp06/18 14:54 Order name: PT-INR; Complete Time: 15:26 sp3 06/18 14:54 Order name: CT Abd/Pelvis - IV Contrast Only; Complete Time: 16:25 sp06/18 14:54 Order name: IV Saline Lock; Complete Time: 15: sp3 06/18 14:54 Order name: Labs collected and sent; Complete Time: 15:06 sp3 Administered Medications: 15:15 Drug: NS 0.9% IV 1000 ml IV at 1 bolus Per protocol; 1000 mL bolus Route: IV; Rate: 1 cm10 bolus; Site: right forearm; 16:38 Follow up: Response: No adverse reaction; IV Status: Completed infusion; IV Intake: cm10 700ml Disposition Summary: 06/18/23 16:27 Discharge Ordered Notes: Location: Home sp3 Condition: Stable sp3 Diagnosis - Crohn's disease, rectal bleeding sp3 Followup: sp3 - With: Private Physician - When: As needed - Reason: Further diagnostic work-up Discharge Instructions: - Discharge Summary Sheet sp3 - Crohn's Disease sp3 Forms: - Work release form ll1 - Medication Reconciliation Form sp3 - Thank You Letter sp3 - Antibiotic Education sp3 - Prescription Opioid Use sp3 - Patient Portal Instructions sp3 - Leadership Thank You Letter sp3 Signatures: Dispatcher [employer] Annika Garber MD MD sp3 Marine Amezquita RN RN cm10
--- NOTE | 2023-06-18 16:27 | ER ---
Nurse's Notes [facility] Name: Toy Gloria Age: 32 yrs Sex: Male : 1990 Arrival Date: 06/18/2023 Time: 14:43 Bed 19 Private MD: Diagnosis: Crohn's disease, rectal bleeding Presentation: 06/18 15:02 Chief complaint: EMS states: They were called to [employer] due to patient having rectal cm10 bleeding. Pt reports that he has a history of Crohns and occasionally has rectal bleeding. Pt used bathroom prior to triage and bright red blood was noted on the ground. Pt complaining of rectal pain and abdominal pain. Pt currently in custody of [facility]. Coronavirus screen: Vaccine status: Patient reports receiving the 2nd dose of the covid vaccine. Client denies travel out of the [place] in the last 14 days. Ebola Screen: Patient denies travel to an Ebola-affected area in the 21 days before illness onset. No symptoms or risks identified at this time. Initial Sepsis Screen: Does the patient meet any 2 criteria? No. Patient's initial sepsis screen is negative. Does the patient have a suspected source of infection? No. Patient's initial sepsis screen is negative. Risk Assessment: Do you want to hurt yourself or someone else? Patient reports no desire to harm self or others. Onset of symptoms was June 18, 2023. 15:02 Method Of Arrival: EMS: [facility] 10 15:02 Acuity: CHRISTINA 3 cm10 Triage Assessment: 15:06 General: Appears in no apparent distress. comfortable, Behavior is calm, cooperative. cm10 Pain: Complains of pain in abdomen. Neuro: No deficits noted. Level of Consciousness is awake, alert, obeys commands, Oriented to person, place, time, situation. Cardiovascular: No deficits noted. Capillary refill < 3 seconds Patient's skin is warm and dry. Cardiovascular: Denies chest pain, lightheadedness, shortness of breath. Respiratory: No deficits noted. Airway is patent Respiratory effort is even, unlabored, Respiratory pattern is regular, symmetrical. GI: No deficits noted. Abdomen is flat, Reports lower abdominal pain, rectal bleeding. : No deficits noted. No signs and/or symptoms were reported regarding the genitourinary system. Derm: No deficits noted. No signs and/or symptoms reported regarding the dermatologic system. Skin is intact, Skin is pink, warm \T\ dry. Musculoskeletal: No deficits noted. Range of motion: intact in all extremities. Historical: - Allergies: 15:05 KETAMINE; cm10 15:05 Phenergan; cm10 15:05 special K; cm10 15:05 Versed; cm10 - PMHx: 15:05 chron's disease; Depression; GERD; Kidney stones; ulcertive colitis; cm10 - PSHx: 15:05 renal stent; cm10 - Immunization history:: Adult Immunizations up to date. - Social history:: Smoking status: Patient reports the use of cigarette tobacco products, smokes one pack cigarettes per day. Screenin:17 [facility] ED Fall Risk Assessment (Adult) History of falling in the last 3 months, cm10 including since admission No falls in past 3 months (0 pts) Confusion or Disorientation No (0 pts) Intoxicated or Sedated No (0 pts) Impaired Gait No (0 pts) Mobility Assist Device Used No (0 pt) Altered Elimination No (0 pt) Score/Fall Risk Level 0 - 2 = Low Risk Oriented to surroundings, Maintained a safe environment, Hourly rounding (assess needs \T\ fall precautionary measures) done. Abuse screen: Denies threats or abuse. Denies injuries from another. Nutritional screening: No deficits noted. Tuberculosis screening: No symptoms or risk factors identified. Assessment: 15:41 Reassessment: Pt ambulating back from restroom at this time. Pt states that he is not cm10 bleeding as much as he was before. 16:37 Reassessment: Patient appears in no apparent distress at this time. Patient and/or cm10 family updated on plan of care and expected duration. Pain level reassessed. Patient is alert, oriented x 3, equal unlabored respirations, skin warm/dry/pink. Patient states feeling better. Patient states symptoms have improved. Vital Signs: 15:00 BP 121 / 77; Pulse 63; Resp 18; Pulse Ox 98% on R/A; cm10 15:02 BP 118 / 78; Pulse 66; Resp 18; Temp 98; Pulse Ox 98% on R/A; Weight 63.5 kg; Height 5 cm10 ft. 3 in. ; Pain 8/10; 16:20 BP 124 / 82; Pulse 70; Resp 16; Pulse Ox 99% ; cm10 15:02 Body Mass Index 24.80 (63.50 kg, 160.02 cm) cm10 15:02 Pain Scale: Adult cm10 ED Course: 14:45 Patient arrived in ED. cm10 14:45 Arm band placed on. ll1 14:51 Annika Patel MD is Attending Physician. sp3 15:05 Triage completed. cm10 15:06 CBC with Diff Sent. cm10 15:06 CMP Sent. cm10 15:06 Lipase Sent. cm10 15:06 PT-INR Sent. cm10 15:06 Initial lab(s) drawn, by nc, sent to lab. Inserted saline lock: 18 gauge in right cm10 forearm, using aseptic technique. Blood collected. 15:17 Patient has correct armband on for positive identification. Placed in gown. Bed in low cm10 position. Call light in reach. Side rails up X2. David at bedside. Provided Education on: ER process and procedures. . Pulse ox on. NIBP on. 16:00 CT Abd/Pelvis - IV Contrast Only In Process Unspecified. EDMS 16:37 No provider procedures requiring assistance completed. IV discontinued, intact, cm10 bleeding controlled, No redness/swelling at site. Pressure dressing applied. Administered Medications: 15:15 Drug: NS 0.9% IV 1000 ml IV at 1 bolus Per protocol; 1000 mL bolus Route: IV; Rate: 1 cm10 bolus; Site: right forearm; 16:38 Follow up: Response: No adverse reaction; IV Status: Completed infusion; IV Intake: cm10 700ml Medication: 15:17 VIS not applicable for this client. cm10 Intake: 16:38 IV: 700ml; Total: 700ml. cm10 Outcome: 16:27 Discharge ordered by . sp3 16:38 Discharged to Law Enforcement cm10 16:38 Condition: good 16:38 Discharge instructions given to patient, police, Instructed on discharge instructions, follow up and referral plans. medication usage, Demonstrated understanding of instructions, follow-up care, medications, 16:38 Patient left the ED. cm10 Signatures: Dispatcher [employer] EDMS Adriel Knight, ANGIE RN ll1 Annika Patel MD MD sp3 Marine Amezquita RN RN cm10
[2023-06-18 17:54] VITALS: BP 124/82; TEMP 98; O2SAT 99
== END ==
LOC: ER 14:43
DX: K50.911 Crohn's disease, unspecified, with rectal bleeding (principal); F17.210 Nicotine dependence, cigarettes, uncomplicated; Z88.8 Allergy status to other drugs, medicaments and biological substances
CPT/HCPCS: 85025; 36415; 85610; 83690; 80053; 74177; Q9967; J7030